=== PATIENT | female | born 2000 | race Caucasian/White ===

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

== ENCOUNTER 2019-12-18 19:05 | Emergency (ER) | payer MEDICAID, OTHER ==
--- NOTE | 2019-12-18 19:46 | ERPHSYRPT ---
- History of Present Illness Time Seen by Provider: 12/18/19 19:25 Patient Subjective Stated Complaint: Patient stated " I tripped over my babies toy". Triage Nursing Assessment: Patient arrived in W/C with family. Patient alert and orientated times 4. Patient answers questions appropriatley. Patient's right outside ankle with small purplish bruising. Slight swelling noted. Patient able to wiggle toes without difficulty. Cap refill < 3 seconds. Patient able to fill sensation when touched. No swelling in leg noted. Physician History: patient is a 19-year-old white female who injured her right ankle and foot tripping over her child's toy. She has not been able to bear weight. Method of Injury: fell, twisted Occurred: just prior to arrival Quality: aching Severity of Pain-Max: moderate Severity of Pain-Current: moderate Lower Extremities Pain: foot: right (tenderness along the lateral aspect of the right foot), ankle: right (tenderness over the lateral aspect of the right ankle some edema and deformity) Allergies/Adverse Reactions: morphine Allergy (Verified 12/18/19 19:12) Hx Tetanus, Diphtheria Vaccination/Date Given: Yes Hx Influenza Vaccination/Date Given: No Hx Pneumococcal Vaccination/Date Given: No Immunizations Up to Date: Yes - Review of Systems Constitutional: No Fever, No Chills Eyes: No Symptoms Ears, Nose, & Throat: No Symptoms Respiratory: No Cough, No Dyspnea Cardiac: No Chest Pain, No Edema, No Syncope Abdominal/Gastrointestinal: No Abdominal Pain, No Nausea, No Vomiting, No Diarrhea Genitourinary Symptoms: No Dysuria Musculoskeletal: Fall, Injury, Joint Pain, No Back Pain, No Neck Pain Skin: No Rash Neurological: No Dizziness, No Focal Weakness, No Sensory Changes Psychological: No Symptoms Endocrine: No Symptoms All Other Systems: Reviewed and Negative - Past Medical History Pertinent Past Medical History: Yes Neurological History: No Pertinent History ENT History: No Pertinent History Cardiac History: No Pertinent History Respiratory History: Asthma Endocrine Medical History: No Pertinent History Musculoskeletal History: Rheumatoid Arthritis GI Medical History: No Pertinent History History: No Pertinent History Psycho-Social History: No Pertinent History Female Reproductive Disorders: No Pertinent History Other Medical History: RA - Past Surgical History Past Surgical History: Yes Neuro Surgical History: No Pertinent History Cardiac: No Pertinent History Respiratory: No Pertinent History Gastrointestinal: No Pertinent History Genitourinary: No Pertinent History Musculoskeletal: No Pertinent History Female Surgical History: No Pertinent History - Social History Smoking Status: Current every day smoker How long have you smoked: 2 years Exposure to second hand smoke: Yes Drug Use: none Patient Lives Alone: No - Female History Hx Last Menstrual Period: 11/28/19 Hx Now: No - Nursing Vital Signs Nursing Vital Signs: Initial Vital Signs Temperature 97.8 F 12/18/19 19:14 Pulse Rate 107 H 12/18/19 19:14 Respiratory Rate 18 12/18/19 19:14 Blood Pressure 127/76 12/18/19 19:14 O2 Sat by Pulse Oximetry 100 12/18/19 19:14 Pain Scale Pain Intensity 8 - Physical Exam General Appearance: moderate distress, alert Eyes, Ears, Nose, Throat Exam: moist mucous membranes Neck Exam: non-tender, supple Cardiovascular/Respiratory Exam: chest non-tender, normal breath sounds, regular rate/rhythm, no respiratory distress Gastrointestinal/Abdominal Exam: non-tender, guarding Back Exam: normal inspection, No vertebral tenderness Ankle Exam: right ankle: bone tenderness, deformity, soft tissue tenderness, swelling, left ankle: non-tender, normal inspection, normal range of motion, no evidence of injury Foot Exam: right foot: bone tenderness, deformity, limited range of motion, pain Neuro/Tendon Exam: normal sensation, normal motor functions Mental Status Exam: alert, oriented x 3, cooperative Skin Exam: normal color, warm, dry SpO2: 100 - Course Nursing assessment & vital signs reviewed: Yes - Radiology Exams Right Ankle X-ray Interpretation: Interpreted by me, Negative, No Fracture Foot X-ray Interpretation: Interpreted by me, Negative, No Fracture Ordered Tests: Active Orders 24 hr Category Date Time Status Cold Application STAT Care 12/18/19 19:21 Active ANKLE (3 VIEWS) Stat Exams 12/18/19 Ordered FOOT (MINIMUM 3 VIEWS) Stat Exams 12/18/19 Ordered - Progress Progress: unchanged - Departure Departure Disposition: Home Clinical Impression: Sprain of right foot, Sprain of right ankle Condition: Stable Critical Care Time: No Referrals: DOCTOR,NO FAMILY [Primary Care Provider] - Instructions: Foot Sprain (DC), Ankle Sprain (DC) Prescriptions: Hydrocodone/APAP 5-325 Tab^^^ [Muse 5-325 Tablet^^^] 1 tab PO Q6HPRN PRN #10 tablet MDD 6 PRN Reason: Pain
[2019-12-18] MEDS ORDERED: NORCO 5/325 MG PO ONE (19:59)
[2019-12-18] MEDS ORDERED: NORCO 5/325 MG ONE (20:01)
[2019-12-18 20:06] VITALS: BP 121/81; PULSE 100; O2SAT 99
--- NOTE | 2019-12-19 08:35 | XRAY ---
Indication: Bruising following tripping injury. Comparison: None 3 nonweightbearing views of the right foot demonstrates mild soft tissue swelling adjacent to the 5th MTP. No other bony, articular, or soft tissue abnormalities.
--- NOTE | 2019-12-19 08:38 | XRAY ---
Indication: Bruising following tripping injury. Comparison: None 3 views of the right ankle demonstrates normal bones, articulation, and soft tissues.
== END 2019-12-18 20:15 | disposition home or self-care (01) ==
LOC: ED 19:05
DX: S93.601A Unspecified sprain of right foot, initial encounter (principal); S93.401A Sprain of unspecified ligament of right ankle, initial encounter; W01.0XXA Fall on same level from slipping, tripping and stumbling without subsequent striking against object, initial encounter
CPT/HCPCS: 73610; 73630; 99284; L4386; A9270-GY

== ENCOUNTER 2020-08-15 00:44 | Observation (INO) | payer MEDICAID, OTHER ==
[2020-08-15 01:08] VITALS: O2SAT 99
[2020-08-15 01:23] LABS: Appearance CLEAR (CLEAR); Bilirubin NEGATIVE (NEGATIVE); Blood NEGATIVE Ery/ul (0-5); Epithelial Cells RARE /HPF (FEW); Glucose NEGATIVE (NEGATIVE); Ketones NEGATIVE (NEGATIVE); Leukocyte Esterase NEGATIVE (NEGATIVE); Nitrite NEGATIVE (NEGATIVE); Protein,Urine Dip NEGATIVE (Negative); Specific Gravity 1.008 (1.005-1.025); Urobilinogen NEGATIVE mg/dL (0-1)
[2020-08-15 01:39] LABS: Amphetamine,Urine NEGATIVE (NEGATIVE); Barbiturate,Urine NEGATIVE (NEGATIVE); Benzodiazepine,Urine NEGATIVE (NEGATIVE); Cocaine,Urine NEGATIVE (NEGATIVE); Methadone,Urine NEGATIVE (NEGATIVE); Opiate,Urine POSITIVE (NEGATIVE); PCP,Urine NEGATIVE (NEGATIVE); THC,Urine NEGATIVE (NEGATIVE)
[2020-08-15] MEDS ORDERED: TYLENOL 325 MG PO PRN (04:00)
[2020-08-15 05:14] VITALS: PULSE 90
--- NOTE | 2020-08-15 08:50 | PCM.SSS ---
History of Present Illness - Chief Complaint Chief Complaint: OB CHECK History of Present Illness: is a 20 year old female pt of Dr. Davenport at 34 weeks who came in to LR last night complaining of contractions and back pain; was not timing them. On the monitor, FHT have been Cat I, and no contractions noted. Her UA was neg. UDS + for opiates. FFN is pending. U/s showed vaginal cervical length to be >3 cm. Preliminary measurements suggest the baby is 30w 2d - will await final report and discuss with Dr. Davenport prior to discharging patient. Previous induced at [address] Graff for PIH. No issues this thus far per pt (prenatals not yet available). - Review of Systems Abdominal/Gastrointestinal: Abdominal Pain Musculoskeletal: Back Pain All Other Systems: Reviewed and Negative Medications & Allergies Home Medications: Home Medication List Hydrocodone Bit/Acetaminophen [[place] 7.5-325 Tablet] 1 mg PO Q6HPRN PRN 08/15/20 [History Confirmed 08/15/20] Ondansetron ODT 4 MG [Zofran Odt 4 mg] 4 mg PO Q6H PRN PRN 08/15/20 [History Confirmed 08/15/20] Vits W-Ca,Fe,FA(<1Mg) [] 1 each PO DAILY 08/15/20 [History Confirmed 08/15/20] Allergies/Adverse Reactions: Allergies Allergy/AdvReac Type Severity Reaction Status Date / Time morphine Allergy Verified 12/18/19 19:12 - Past Medical History Past Medical History: Yes Neurological History: No Pertinent History ENT History: No Pertinent History Cardiac History: No Pertinent History Respiratory History: Asthma Endocrine Medical History: No Pertinent History Musculoskelatal History: Rheumatoid Arthritis GI Medical History: No Pertinent History History: No Pertinent History Pyscho-Social History: No Pertinent History Reproductive Disorders: No Pertinent History Comment: RA - Female History Are you now?: Yes Expected Date of Delivery: 09/26/20 - Past Surgical History Past Surgical History: Yes Neuro Surgical History: No Pertinent History Cardiac History: No Pertinent History Respiratory Surgery: No Pertinent History GI Surgical History: No Pertinent History Genitourinary Surgical Hx: No Pertinent History Musculskeletal Surgical Hx: No Pertinent History Female Surgical History: No Pertinent History - Social History Smoking Status: Current every day smoker How long have you smoked: 3 years Exposure to second hand smoke: Yes Alcohol: None Drug Use: none - Physical Exam Vital Signs: Vital Signs - 24 hr Temp Pulse Resp BP BP Pulse Ox 08/15/20 04:00 97.9 F 90 18 126/78 99 08/15/20 03:00 80 106/58 08/15/20 01:00 97.8 F 89 20 123/76 99 08/15/20 00:44 97.8 F 89 20 123/76 99 General Appearance: no apparent distress, alert Neurologic Exam: oriented x 3, cooperative, other (pat refl 1+ bilat. No clonuse) Eye Exam: eyes nml inspection Ears, Nose, Throat Exam: moist mucous membranes Neck Exam: normal inspection Respiratory Exam: normal breath sounds, lungs clear, No crackles/rales, No rhonchi, No wheezing Cardiovascular Exam: regular rate/rhythm, normal heart sounds, No murmur Gastrointestinal/Abdomen Exam: soft, normal bowel sounds, tenderness (mild, upper abd), other (gravid) Extremity Exam: normal inspection, No pedal edema, No swelling Skin Exam: normal color, warm, dry, No rash Results - Labs Lab/Micro Results: Lab Results-Last 24 Hours 08/15/20 08/15/20 Range/Units 01:00 01:00 Urine Color YELLOW (YELLOW) Urine Appearance CLEAR (CLEAR) Urine pH 7.0 (5-6) Ur Specific [place] 1.008 (1.005-1.025) Urine Protein NEGATIVE (Negative) Urine Ketones NEGATIVE (NEGATIVE) Urine Blood NEGATIVE (0-5) Jones/ul Urine Nitrite NEGATIVE (NEGATIVE) Urine Bilirubin NEGATIVE (NEGATIVE) Urine Urobilinogen NEGATIVE (0-1) mg/dL Ur Leukocyte Esterase NEGATIVE (NEGATIVE) Urine WBC (Auto) NONE (0-5) /HPF Urine RBC (Auto) NONE (0-2) /HPF U Epithel Cells (Auto) RARE (FEW) /HPF Urine Bacteria (Auto) NONE (NEGATIVE) /HPF Urine Culture Reflexed NO (NO) Urine Glucose NEGATIVE (NEGATIVE) mg/dL Urine Opiates Level POSITIVE (NEGATIVE) Ur Methadone NEGATIVE (NEGATIVE) Urine Barbiturates NEGATIVE (NEGATIVE) Ur Phencyclidine (PCP) NEGATIVE (NEGATIVE) Urine Amphetamine NEGATIVE (NEGATIVE) U Benzodiazepine Level NEGATIVE (NEGATIVE) Urine Cocaine NEGATIVE (NEGATIVE) Urine Marijuana (THC) NEGATIVE (NEGATIVE) - Radiology Impressions Radiology Exams & Impressions: Radiology Procedures Category Date Time Status OB >14 WKS 1st GESTATION [US] Urgent Exams 08/15/20 07:00 Taken Assessment/Plan (1) Current Visit: Yes Status: Acute Qualifiers: Weeks of gestation: 34 weeks Qualified Code(s): Z3A.34 - 34 weeks gestation of Assessment & Plan: Labor ruled out. However may have an intrauterine growth restriction - await final ultrasound read and will discuss with Dr. Davenport prior to disposition. Code(s): Z34.90 - ENCNTR FOR SUPRVSN OF NORMAL , UNSP, UNSP TRIMESTER (2) Positive urine drug screen Current Visit: Yes Status: Acute Assessment & Plan: For opiates - will d/w Dr. Davenport. Code(s): R82.5 - ELEVATED URINE LEVELS OF DRUG/MEDS/BIOL SUBST Hospital Summary - Hospital Course Hospital Course: Pt is 20 yo at 34 weeks, pt of Dr. Davenport, admitted during the night with contractions. None picked up on tocometer. FHT Cat I. UA neg. FFN pending. Cervical length > 3 cm. UDS + for opiates. Full u/s read pending, may be IUGR - will d/w Dr. Davenport. - Vitals & Intake/Output Vital Signs: Vital Signs Temperature 97.9 F 08/15/20 04:00 Pulse Rate 90 08/15/20 04:00 Respiratory Rate 18 08/15/20 04:00 Blood Pressure 126/78 08/15/20 04:00 O2 Sat by Pulse Oximetry 99 08/15/20 04:00 Intake & Output: Intake & Output 08/12/20 08/13/20 08/14/20 08/15/20 11:59 11:59 11:59 11:59 Intake Total 850 Balance 850 Weight 78.018 kg - Lab Lab Results-Last 24 Hrs: Lab Results-Last 24 Hours 08/15/20 08/15/20 Range/Units 01:00 01:00 Urine Color YELLOW (YELLOW) Urine Appearance CLEAR (CLEAR) Urine pH 7.0 (5-6) Ur Specific [place] 1.008 (1.005-1.025) Urine Protein NEGATIVE (Negative) Urine Ketones NEGATIVE (NEGATIVE) Urine Blood NEGATIVE (0-5) Jones/ul Urine Nitrite NEGATIVE (NEGATIVE) Urine Bilirubin NEGATIVE (NEGATIVE) Urine Urobilinogen NEGATIVE (0-1) mg/dL Ur Leukocyte Esterase NEGATIVE (NEGATIVE) Urine WBC (Auto) NONE (0-5) /HPF Urine RBC (Auto) NONE (0-2) /HPF U Epithel Cells (Auto) RARE (FEW) /HPF Urine Bacteria (Auto) NONE (NEGATIVE) /HPF Urine Culture Reflexed NO (NO) Urine Glucose NEGATIVE (NEGATIVE) mg/dL Urine Opiates Level POSITIVE (NEGATIVE) Ur Methadone NEGATIVE (NEGATIVE) Urine Barbiturates NEGATIVE (NEGATIVE) Ur Phencyclidine (PCP) NEGATIVE (NEGATIVE) Urine Amphetamine NEGATIVE (NEGATIVE) U Benzodiazepine Level NEGATIVE (NEGATIVE) Urine Cocaine NEGATIVE (NEGATIVE) Urine Marijuana (THC) NEGATIVE (NEGATIVE) - Radiology Exams Ordered Rad Exams-Entire Visit: Radiology Procedures Category Date Time Status OB >14 WKS 1st GESTATION [US] Urgent Exams 08/15/20 07:00 Taken - Discharge Disposition: Home, Self-Care Condition: Stable Prescriptions: No Action Ondansetron ODT 4 MG [Zofran Odt 4 mg] 4 mg PO Q6H PRN PRN PRN Reason: Nausea Vits W-Ca,Fe,FA(<1Mg) [] 1 each PO DAILY Hydrocodone Bit/Acetaminophen [[place] 7.5-325 Tablet] 1 mg PO Q6HPRN PRN PRN Reason: Pain Follow up with: CESAR DAVENPORT [Primary Care Provider] - 1 Week
[2020-08-15 09:08] VITALS: BP 130/73
--- NOTE | 2020-08-15 09:28 | XRAY ---
Indication: well-being following abdomen injury. Two-dimensional OB ultrasound performed. Comparison: None There is a single viable intrauterine currently in breech presentation. Normal four-chamber heart with heart rate 138 BPM. Normal three-vessel cord and cord insertion. Visualized spine, stomach, kidneys, and bladder are unremarkable. Posterior fundal placenta without abruption/previa. Cervix is closed and measures 3.8 cm in length. BPD measures 7.67 cm corresponding to 30 weeks 5 days. HC measures 27.61 cm corresponding to 30 weeks 1 day. AC measures 26.56 cm corresponding to 30 weeks 5 days. FL measures 5.67 cm corresponding to 29 weeks 5 days. Estimated weight 3 lbs. 7 oz., +/-8 ounces. Less than 3 percentile. TANA is 16.2 cm. Impression: Single viable intrauterine with mean gestational age 30 weeks 2 days. No acute findings. Ultrasound expected date of confinement is October 22, 2020. Patient however reports her expected date of confinement is September 26, 2020. Based on this, fetus is considered small for gestational age.
== END 2020-08-15 10:35 | disposition home or self-care (01) ==
LOC: UNDOADMOB 00:44 → OB 00:44 → UNDODISOB 10:35
PROVIDERS: ADMIT Family Medicine; ATTEND Family Medicine
DX: Z34.83 Encounter for supervision of other normal pregnancy, third trimester (principal); Z3A.34 34 weeks gestation of pregnancy; R82.5 Elevated urine levels of drugs, medicaments and biological substances
CPT/HCPCS: 76805; 80307; 81001; 82731; G0378; A9270-GY

== ENCOUNTER 2020-09-14 13:13 | Inpatient (IN) | payer OTHER ==
[2020-09-14] MEDS ORDERED: TUCKS TP PRN (13:47)
[2020-09-14] MEDS ORDERED: Dermoplast Spray TP PRN (13:47)
[2020-09-14] MEDS: MOTRIN 400 MG PO PRN (14:18)
[2020-09-14 14:34] LABS: Hematocrit 34.2 % (35-47); Hemoglobin 11.7 gm/dl (12.0-16.0); Mean Cell Volume 91.9 fl (78-100); Mean Corpuscular Hemoglobin 31.5 pg (26-32); Mean Corpuscular Hgb Concent. 34.2 g/dl (32-36); Platelet Count 319 K/mm3 (150-450); Red Blood Count 3.72 M/mm3 (4.1-5.4); Red Cell Distribution Width 13.3 % (11.5-14.0)
[2020-09-14 14:44] LABS: White Blood Count 27.6 K/mm3 (4.0-10.5)
[2020-09-14 14:57] LABS: ABO TYPING A; Antibody Screen NEGATIVE (NEGATIVE); RH TYPING POSITIVE
[2020-09-14 15:35] LABS: ANISOCYTOSIS 1+; BAND 6 % (0.0-2.0); Lymphocytes 6 % (24-44); Monocyte 2 % (0.0-12.0); Neutrophils 86 % (36.0-66.0); Platelet Estimate NORMAL (NORMAL); Total Cells Counted 100; Toxic Granulation 2+
[2020-09-14 16:42] LABS: Barbiturate,Urine NEGATIVE (NEGATIVE); Benzodiazepine,Urine NEGATIVE (NEGATIVE); Cocaine,Urine NEGATIVE (NEGATIVE); Methadone,Urine NEGATIVE (NEGATIVE); Opiate,Urine NEGATIVE (NEGATIVE); PCP,Urine NEGATIVE (NEGATIVE); THC,Urine NEGATIVE (NEGATIVE)
[2020-09-14 16:56] LABS: Amphetamine,Urine POSITIVE (NEGATIVE)
[2020-09-14] MEDS: TYLENOL EXTRA STRENGTH 500 MG PO PRN (20:47)
[2020-09-14] MEDS: Colace 100 MG PO SCH (20:48)
[2020-09-14 22:26] VITALS: O2SAT 99
[2020-09-15] MEDS: MOTRIN 400 MG PO PRN ×2 (01:11→08:30)
[2020-09-15] MEDS ORDERED: Anucort-HC SUPPOSITORY PR PRN (01:28)
[2020-09-15] MEDS ORDERED: CORTISONE 1% CREAM TP PRN (01:28)
[2020-09-15] MEDS: TYLENOL EXTRA STRENGTH 500 MG PO PRN ×2 (04:38→11:27)
[2020-09-15] MEDS: Colace 100 MG PO SCH ×4 (04:46→23:26)
[2020-09-15 06:05] LABS: Hematocrit 30.2 % (35-47); Mean Cell Volume 93.8 fl (78-100); Mean Corpuscular Hemoglobin 31.1 pg (26-32); Mean Corpuscular Hgb Concent. 33.1 g/dl (32-36); Platelet Count 311 K/mm3 (150-450); Red Blood Count 3.22 M/mm3 (4.1-5.4); Red Cell Distribution Width 13.2 % (11.5-14.0); White Blood Count 21.6 K/mm3 (4.0-10.5)
[2020-09-15 07:35] LABS: ANISOCYTOSIS 1+; BAND 3 % (0.0-2.0); Lymphocytes 15 % (24-44); Monocyte 6 % (0.0-12.0); Neutrophils 76 % (36.0-66.0); Platelet Estimate NORMAL (NORMAL); Total Cells Counted 100; Toxic Granulation 2+
[2020-09-15] MEDS: FERREX 150 PO SCH (11:27)
[2020-09-16] MEDS: MOTRIN 400 MG PO PRN ×2 (00:58→10:22)
--- NOTE | 2020-09-16 05:52 | PCM.NOTE ---
Date and Time: 09/16/20 0551 Subjective Assessment: ppd 2 pt resting in bed and doing well vss afebrile abd; soft uterus; firm lochia; mild a/p sp ppd 2 doing very well dc home and fu with primary care provider in 6 wks. OBJECTIVE DATA Vital Signs: Vital Signs - 24 hr Temp Pulse Resp BP 09/16/20 02:00 98.2 F 92 H 20 129/77 09/15/20 20:30 98.2 F 84 18 136/80 09/15/20 08:00 98.2 F 87 20 126/78 Pain Assessment - Last Documented Pain Intensity [Anterior] 8 Pain Intensity 0 Pain Scale Used 0-10 Pain Scale Intake and Output: Intake & Output 09/13/20 09/14/20 09/15/20 09/16/20 11:59 11:59 11:59 11:59 Weight 82.1 kg Lab Results: Lab Results-Last 24 Hours 09/15/20 Range/Units 05:00 WBC 21.6 H (4.0-10.5) K/mm3 RBC 3.22 L (4.1-5.4) M/mm3 Hgb 10.0 L (12.0-16.0) gm/dl Hct 30.2 L (35-47) % MCV 93.8 (78-100) fl MCH 31.1 (26-32) pg MCHC 33.1 (32-36) g/dl RDW 13.2 (11.5-14.0) % Plt Count 311 (150-450) K/mm3 MPV 9.0 (7.5-11.0) fl Segmented Neutrophils 76 H (36.0-66.0) % Band Neutrophils 3 H (0.0-2.0) % Lymphocytes (Manual) 15 L (24-44) % Monocytes (Manual) 6 (0.0-12.0) % Toxic Granulation 2+ Platelet Estimate NORMAL (NORMAL) RBC Morphology ABNORMAL Anisocytosis 1+
--- NOTE | 2020-09-16 05:55 | PCM.DS ---
Discharge Summary Date of Admission: 09/14/20 13:13 Date of Discharge: 09/16/20 Admitting Physician: PAOLO LAKHANI DO Primary Care Provider: CESAR DAVENPORT Allergies Allergies morphine Allergy (Verified 12/18/19 19:12) Hospital Summary - Hospital Course Hospital Course: pt admitted on sep 14 in labor and completely dilated presented to er and subsequently delivered live baby boy without complication. pt noted having positive amphetamine in urine toxicology. pt during period did well and now stable for discharge. pt was advised to fu with her obgyn for care in 6 wks and was noted having stable h/h. all questions answered to her satisfaction. - Vitals & Intake/Output Vital Signs: Vital Signs Temperature 98.2 F 09/16/20 02:00 Pulse Rate 92 H 09/16/20 02:00 Respiratory Rate 09/16/20 02:00 Blood Pressure 129/77 09/16/20 02:00 O2 Sat by Pulse Oximetry 99 09/15/20 01:00 Intake & Output: Intake & Output 09/13/20 09/14/20 09/15/20 09/16/20 11:59 11:59 11:59 11:59 Weight 82.1 kg - Lab Result Diagrams: 09/15/20 05:00 Lab Results-Last 24 Hrs: Lab Results-Last 24 Hours 09/15/20 Range/Units 05:00 WBC 21.6 H (4.0-10.5) K/mm3 RBC 3.22 L (4.1-5.4) M/mm3 Hgb 10.0 L (12.0-16.0) gm/dl Hct 30.2 L (35-47) % MCV 93.8 (78-100) fl MCH 31.1 (26-32) pg MCHC 33.1 (32-36) g/dl RDW 13.2 (11.5-14.0) % Plt Count 311 (150-450) K/mm3 MPV 9.0 (7.5-11.0) fl Segmented Neutrophils 76 H (36.0-66.0) % Band Neutrophils 3 H (0.0-2.0) % Lymphocytes (Manual) 15 L (24-44) % Monocytes (Manual) 6 (0.0-12.0) % Toxic Granulation 2+ Platelet Estimate NORMAL (NORMAL) RBC Morphology ABNORMAL Anisocytosis 1+ - Procedures and Test Procedures and Tests throughout Hospitalization: Therapy Orders & Screens 09/14/20 13:50 Standby STAT Comment: - Discharge Disposition: Home, Self-Care Condition: Stable Prescriptions: No Action Ondansetron ODT 4 MG [Zofran Odt 4 mg] 4 mg PO Q6H PRN PRN PRN Reason: Nausea Vits W-Ca,Fe,FA(<1Mg) [] 1 each PO DAILY Hydrocodone Bit/Acetaminophen [[place] 7.5-325 Tablet] 1 mg PO Q6HPRN PRN PRN Reason: Pain Ferrous Sulfate 325 mg PO DAILY Follow up with: CESAR DAVENPORT [Primary Care Provider] - Call for Appointment (should fu with her obgyn in 6 wks)
[2020-09-16] MEDS ORDERED: Adacel Vial IM ONE (08:00)
[2020-09-16] MEDS: Colace 100 MG PO SCH (10:22)
[2020-09-16] MEDS: FERREX 150 PO SCH (10:24)
[2020-09-16 16:02] VITALS: BP 131/72; PULSE 94
[2020-09-16] MEDS: TYLENOL EXTRA STRENGTH 500 MG PO PRN (17:55)
== END 2020-09-16 18:05 | disposition home or self-care (01) | DRG 807 ==
LOC: OB 13:13
PROVIDERS: ADMIT Obstetrics & Gynecology; ATTEND Obstetrics & Gynecology
PROC: 10E0XZZ Delivery of Products of Conception, External Approach (ICD-10-PCS; principal; 2020-09-14)
DX: O80 Encounter for full-term uncomplicated delivery (principal); Z37.0 Single live birth; Z3A.37 37 weeks gestation of pregnancy
CPT/HCPCS: 36415; 80307; 85025; 86592; 86701; 86702; 86765; 86850; 86900; 86901; 87340; 87389; 87535; 90715; 94799; G0378; A9270-GY

== ENCOUNTER 2021-06-28 22:59 | Emergency (ER) | payer OTHER ==
--- NOTE | 2021-06-28 23:11 | ERPHSYRPT ---
- History of Present Illness Time Seen by Provider: 06/28/21 23:11 Historian: patient Exam Limitations: no limitations Physician History: This is a 21-year-old white female who has had no prior abdominal surgeries and presents with 1 week history of intermittent right upper quadrant abdominal pain. In the last 2 days the pain has worsened and has been constant. She has no other associated symptoms. She denies fever. She denies cough. She denies chest pain. She states that the pain does worsen at times when she eats food. She denies nausea vomiting or diarrhea. The pain does not radiate. Timing/Duration: week(s) (1), intermittent, worse Activities at Onset: none Quality: aching Abdominal Pain Onset Location: RUQ Pain Radiation: no radiation Severity of Pain-Max: moderate Severity of Pain-Current: mild Modifying Factors: Improves With: eating (Sometimes worsens.) Associated Symptoms: denies symptoms Previous symptoms: same symptoms as today Allergies/Adverse Reactions: morphine Allergy (Verified 06/28/21 23:30) Home Medications: desogestreL-ethinyl estradioL [[place] 28 Tablet] 1 tab PO DAILY 06/28/21 [History] Hx Tetanus, Diphtheria Vaccination/Date Given: Yes Hx Influenza Vaccination/Date Given: No Hx Pneumococcal Vaccination/Date Given: No Travel Risk - International Travel Have you traveled outside of the country in past 3 weeks: No - Coronavirus Screening Are you exhibiting any of the following symptoms?: No Close contact with a COVID-19 positive Pt in past 14-21 Days: No - Review of Systems Constitutional: No Symptoms Eyes: No Symptoms Ears, Nose, & Throat: No Symptoms Respiratory: No Symptoms Cardiac: No Symptoms Abdominal/Gastrointestinal: Abdominal Pain, No Nausea, No Vomiting, No Diarrhea Genitourinary Symptoms: No Symptoms Musculoskeletal: No Symptoms Skin: No Symptoms Neurological: No Symptoms Psychological: No Symptoms Endocrine: No Symptoms Hematologic/Lymphatic: No Symptoms Immunological/Allergic: No Symptoms All Other Systems: Reviewed and Negative - Past Medical History Pertinent Past Medical History: Yes Neurological History: No Pertinent History ENT History: No Pertinent History Cardiac History: No Pertinent History Respiratory History: Asthma Endocrine Medical History: No Pertinent History Musculoskeletal History: Rheumatoid Arthritis GI Medical History: No Pertinent History History: No Pertinent History Psycho-Social History: No Pertinent History Female Reproductive Disorders: No Pertinent History Other Medical History: RA - Past Surgical History Past Surgical History: Yes Neuro Surgical History: No Pertinent History Cardiac: No Pertinent History Respiratory: No Pertinent History Gastrointestinal: No Pertinent History Genitourinary: No Pertinent History Musculoskeletal: No Pertinent History Female Surgical History: No Pertinent History - Social History Smoking Status: Current every day smoker How long have you smoked: 3 years Exposure to second hand smoke: Yes Drug Use: methamphetamines Patient Lives Alone: No - Nursing Vital Signs Nursing Vital Signs: Initial Vital Signs Temperature 97.8 F 06/28/21 23:22 Pulse Rate 89 06/28/21 23:22 Respiratory Rate 17 06/28/21 23:22 Blood Pressure 159/91 06/28/21 23:22 O2 Sat by Pulse Oximetry 100 06/28/21 23:22 Pain Scale Pain Intensity 8 - Physical Exam General Appearance: no apparent distress, alert, anxiety Eye Exam: PERRL/EOMI, eyes nml inspection Ears, Nose, Throat Exam: normal ENT inspection, moist mucous membranes Neck Exam: normal inspection, non-tender, supple, full range of motion Respiratory Exam: normal breath sounds, lungs clear, airway intact, No chest tenderness, No respiratory distress Cardiovascular Exam: regular rate/rhythm, normal heart sounds, normal peripheral pulses Gastrointestinal/Abdomen Exam: soft, normal bowel sounds, tenderness (Right upper quadrant), guarding (Mild right upper quadrant to palpation), No rebound Pelvic Exam: not done Rectal Exam: not done Back Exam: normal inspection, normal range of motion, No CVA tenderness, No v ertebral tenderness Extremity Exam: normal inspection, normal range of motion, pelvis stable Neurologic Exam: alert, oriented x 3, cooperative, fur mixer operator II-XII nml as tested, normal mood/affect, nml cerebellar function, nml station & gait, sensation nml Skin Exam: normal color, warm, dry Lymphatic Exam: No adenopathy SpO2 Interpretation: normal O2 Delivery: Room Air - Course Nursing assessment & vital signs reviewed: Yes Ordered Tests: Active Orders 24 hr Category Date Time Status IV Insertion STAT Care 06/28/21 23:40 Active ABDOMEN AND PELVIS W/0 CONTRAS [CT] Stat Exams 06/28/21 23:40 Taken AMYLASE Stat Lab 06/28/21 23:40 Completed CBC W DIFF Stat Lab 06/28/21 23:40 Completed CMP Stat Lab 06/28/21 23:40 Completed HCG,QUALITATIVE URINE Stat Lab 06/28/21 23:44 Completed LIPASE Stat Lab 06/28/21 23:40 Completed Lactic Acid Stat Lab 06/28/21 23:40 Completed UA W/RFX UR CULTURE Stat Lab 06/28/21 23:44 Completed Medication Summary Generic Name Dose Route Start Last Admin Trade Name Allyson PRN Reason Stop Dose Admin Ketorolac Tromethamine 30 mg 06/29/21 01:57 Toradol 30 Mg Injection IV 06/29/21 01:58 STAT ONE Discontinued Medications Generic Name Dose Route Start Last Admin Trade Name Allyson PRN Reason Stop Dose Admin Hydrocodone Bitart/Acetaminophen 1 tab 06/29/21 00:31 06/29/21 01:00 [place] 5/325 Mg PO 06/29/21 00:32 1 tab STAT ONE Administration Hydrocodone Bitart/Acetaminophen Confirm 06/29/21 00:58 [place] 5/325 Mg Administered 06/29/21 00:59 Dose 1 tab .ROUTE .STK-MED ONE Lab/Rad Data: Laboratory Result Diagrams 06/28/21 23:40 06/28/21 23:40 Laboratory Results 06/29/21 06/28/21 06/28/21 Range/Units 00:50 23:44 23:44 WBC (4.0-10.5) K/mm3 RBC (4.1-5.4) M/mm3 Hgb (12.0-16.0) gm/dl Hct (35-47) % MCV (78-100) fl MCH (26-32) pg MCHC (32-36) g/dl RDW (11.5-14.0) % Plt Count (150-450) K/mm3 MPV (7.5-11.0) fl Gran % (36.0-66.0) % Eos # (Auto) (0-0.5) Absolute Lymphs (auto) (1.0-4.6) Absolute Monos (auto) (0.0-1.3) Lymphocytes % (24.0-44.0) % Monocytes % (0.0-12.0) % Eosinophils % (0.00-5.0) % Basophils % (0.0-0.4) % Absolute Granulocytes (1.4-6.9) Basophils # (0-0.4) Sodium (137-145) mmol/L Potassium (3.5-5.1) mmol/L Chloride (98-107) mmol/L Carbon Dioxide (22-30) mmol/L Anion Gap (5-15) MEQ/L BUN (7-17) mg/dL Creatinine (0.52-1.04) mg/dL Estimated GFR ML/MIN Glucose (74-106) mg/dL Lactic Acid 1.0 (0.4-2.0) Calcium (8.4-10.2) mg/dL Total Bilirubin (0.2-1.3) mg/dL AST (14-36) U/L ALT (0-35) U/L Alkaline Phosphatase (38-126) U/L Serum Total Protein (6.3-8.2) g/dL Albumin (3.5-5.0) g/dL Amylase (30-110) U/L Lipase (23-300) U/L Urine Color YELLOW (YELLOW) Urine Appearance CLEAR (CLEAR) Urine pH 5.0 (5-6) Ur Specific [place] 1.027 (1.005-1.025) Urine Protein NEGATIVE (Negative) Urine Ketones NEGATIVE (NEGATIVE) Urine Blood LARGE (0-5) Jones/ul Urine Nitrite NEGATIVE (NEGATIVE) Urine Bilirubin NEGATIVE (NEGATIVE) Urine Urobilinogen 2 (0-1) mg/dL Ur Leukocyte Esterase NEGATIVE (NEGATIVE) Urine WBC (Auto) NONE (0-5) /HPF Urine RBC (Auto) NONE (0-2) /HPF U Epithel Cells (Auto) NONE (FEW) /HPF Urine Bacteria (Auto) NONE (NEGATIVE) /HPF Urine Mucus (Auto) SLIGHT (NEGATIVE) /HPF Urine Culture Reflexed NO (NO) Urine Glucose NEGATIVE (NEGATIVE) mg/dL Urine HCG, Qual NEGATIVE (Negative) 06/28/21 06/28/21 Range/Units 23:40 23:40 WBC 10.2 (4.0-10.5) K/mm3 RBC 4.11 (4.1-5.4) M/mm3 Hgb 11.8 L (12.0-16.0) gm/dl Hct 37.2 (35-47) % MCV 90.5 (78-100) fl MCH 28.7 (26-32) pg MCHC 31.7 L (32-36) g/dl RDW 14.4 H (11.5-14.0) % Plt Count 398 (150-450) K/mm3 MPV 8.8 (7.5-11.0) fl Gran % 56.5 (36.0-66.0) % Eos # (Auto) 0.08 (0-0.5) Absolute Lymphs (auto) 3.48 (1.0-4.6) Absolute Monos (auto) 0.87 (0.0-1.3) Lymphocytes % 34.0 (24.0-44.0) % Monocytes % 8.5 (0.0-12.0) % Eosinophils % 0.8 (0.00-5.0) % Basophils % 0.2 (0.0-0.4) % Absolute Granulocytes 5.78 (1.4-6.9) Basophils # 0.02 (0-0.4) Sodium 140 (137-145) mmol/L Potassium 3.4 L (3.5-5.1) mmol/L Chloride 106 (98-107) mmol/L Carbon Dioxide 24 (22-30) mmol/L Anion Gap 13.6 (5-15) MEQ/L BUN 8 (7-17) mg/dL Creatinine 0.74 (0.52-1.04) mg/dL Estimated GFR > 60.0 ML/MIN Glucose 70 L (74-106) mg/dL Lactic Acid (0.4-2.0) Calcium 8.6 (8.4-10.2) mg/dL Total Bilirubin 0.30 (0.2-1.3) mg/dL AST 16 (14-36) U/L ALT 10 (0-35) U/L Alkaline Phosphatase 48 (38-126) U/L Serum Total Protein 7.1 (6.3-8.2) g/dL Albumin 4.1 (3.5-5.0) g/dL Amylase 68 (30-110) U/L Lipase 234 (23-300) U/L Urine Color (YELLOW) Urine Appearance (CLEAR) Urine pH (5-6) Ur Specific [place] (1.005-1.025) Urine Protein (Negative) Urine Ketones (NEGATIVE) Urine Blood (0-5) Jones/ul Urine Nitrite (NEGATIVE) Urine Bilirubin (NEGATIVE) Urine Urobilinogen (0-1) mg/dL Ur Leukocyte Esterase (NEGATIVE) Urine WBC (Auto) (0-5) /HPF Urine RBC (Auto) (0-2) /HPF U Epithel Cells (Auto) (FEW) /HPF Urine Bacteria (Auto) (NEGATIVE) /HPF Urine Mucus (Auto) (NEGATIVE) /HPF Urine Culture Reflexed (NO) Urine Glucose (NEGATIVE) mg/dL Urine HCG, Qual (Negative) - Progress Progress: improved, pain not gone completely Progress Note: 06/29/21 01:58 CAT scan of the abdomen pelvis without contrast shows mild right hydronephrosis. There is an umbilical hernia that contains fat. It is small. The gallbladder is contracted. Correlate with possibility of recent passage of right ureteral stone. Appendix is visualized and there is no evidence of acute appendicitis 06/29/21 01:59 Counseled pt/family regarding: lab results, diagnosis, need for follow-up, rad results - Departure Departure Disposition: Home Clinical Impression: Umbilical hernia, Hematuria Condition: Stable Critical Care Time: No Referrals: CESAR DAVENPORT [NON-STAFF PHY W/O PRIVILEGES] - Additional Instructions: Drink plenty of fluids. Take your pain medicine this morning as prescribed. Af ter that medicine is completed, may use Tylenol and ibuprofen for pain control. Follow-up with your primary care doctor for further management.
[2021-06-28 23:58] LABS: Appearance CLEAR (CLEAR); Bilirubin NEGATIVE (NEGATIVE); Blood LARGE Ery/ul (0-5); Glucose NEGATIVE (NEGATIVE); Ketones NEGATIVE (NEGATIVE); Leukocyte Esterase NEGATIVE (NEGATIVE); Mucus SLIGHT /HPF (NEGATIVE); Nitrite NEGATIVE (NEGATIVE); Protein,Urine Dip NEGATIVE (Negative); Specific Gravity 1.027 (1.005-1.025); Urobilinogen 2 mg/dL (0-1)
[2021-06-29] MEDS ORDERED: NORCO 5/325 MG PO ONE ×2 (00:31→01:57)
[2021-06-29 00:33] LABS: Absolute Neutrophil Ct (ANC) 5.78 (1.4-6.9); BASOPHIL % 0.2 % (0.0-0.4); Basophil (Absolute #) 0.02 (0-0.4); Eosinophil % 0.8 % (0.00-5.0); Eosinophil (Absolute #) 0.08 (0-0.5); Hematocrit 37.2 % (35-47); Hemoglobin 11.8 gm/dl (12.0-16.0); Lymphocyte (Absolute #) 3.48 (1.0-4.6); Mean Cell Volume 90.5 fl (78-100); Mean Corpuscular Hemoglobin 28.7 pg (26-32); Mean Corpuscular Hgb Concent. 31.7 g/dl (32-36); Mean Platelet Volume 8.8 fl (7.5-11.0); Monocyte (Absolute #) 0.87 (0.0-1.3); Monocytes % 8.5 % (0.0-12.0); Neutrophil % 56.5 % (36.0-66.0); Platelet Count 398 K/mm3 (150-450); Red Blood Count 4.11 M/mm3 (4.1-5.4); Red Cell Distribution Width 14.4 % (11.5-14.0); White Blood Count 10.2 K/mm3 (4.0-10.5)
[2021-06-29 00:47] LABS: ALBUMIN 4.1 g/dL (3.5-5.0); ALKALINE PHOSPHATASE 48 U/L (38-126); AMYLASE 68 U/L (30-110); ANION GAP 13.6 MEQ/L (5-15); BLOOD UREA NITROGEN 8 mg/dL (7-17); CHLORIDE 106 mmol/L (98-107); Calcium 8.6 mg/dL (8.4-10.2); Carbon Dioxide 24 mmol/L (22-30); Creatinine 1 0.74 mg/dL (0.52-1.04); EST GLOMERULAR FILTRATION RATE > 60.0 ML/MIN; Glucose 70 mg/dL (74-106); LIPASE 234 U/L (23-300); Potassium 3.4 mmol/L (3.5-5.1); SGOT/AST 16 U/L (14-36); SGPT/ALT 10 U/L (0-35); SODIUM 140 mmol/L (137-145); Total Protein 7.1 g/dL (6.3-8.2)
[2021-06-29] MEDS ORDERED: NORCO 5/325 MG ONE ×2 (00:58→02:11)
[2021-06-29] MEDS ORDERED: TORAdol 30 mg Injection IV ONE (01:57)
[2021-06-29] MEDS ORDERED: TORAdol 30 mg Injection ONE (02:11)
[2021-06-29 02:18] VITALS: BP 125/74; PULSE 71; O2SAT 100
--- NOTE | 2021-06-29 08:55 | XRAY ---
Indication: Right upper quadrant pain. Multiple contiguous axial images obtained through the abdomen and pelvis without contrast. Comparison: January 02, 2018. Lung bases remain clear. Heart not enlarged. Stomach is mildly distended with food/fluid. Noncontrasted stomach and bowel loops nonobstructed. Continued normal appendix. There is again mild diffuse scattered colonic fecal debris greatest in the right hemicolon. 2 cm right ovary cyst. No free fluid/air. Right kidney minimally hydronephrotic and right ureter is asymmetrically prominent up to 6 mm. No calculus in either system. Remaining liver, gallbladder, pancreas, spleen, adrenal glands, kidneys, ureters, bladder, uterus, and aorta are unremarkable for noncontrast exam. Osseous structures intact. Impression: 1. New minimal right-sided hydronephrosis and hydroureter. Rule out recent passage of calculus. 2. Again diffuse fecal stasis. Comment: Preliminary interpretation made by C. No critical discrepancy.
== END 2021-06-29 02:28 | disposition home or self-care (01) ==
LOC: ED 22:59
DX: K42.9 Umbilical hernia without obstruction or gangrene (principal)
CPT/HCPCS: 36000; 36415; 74176; 80053; 81001; 82150; 83605; 83690; 84703; 85025; 96374; 99284; J1885; A9270-GY

== ENCOUNTER 2021-11-06 21:30 | Emergency (ER) | payer OTHER ==
--- NOTE | 2021-11-06 21:33 | ERPHSYRPT ---
- History of Present Illness Time Seen by Provider: 11/06/21 21:33 Source: patient Exam Limitations: no limitations Physician History: This is a 21-year-old white female who approximately 1 hour ago fell down a few steps outside when attempting to feed her dog. She rolled her left ankle Method of Injury: fell Occurred: just prior to arrival Quality: constant, aching, throbbing Severity of Pain-Max: moderate Severity of Pain-Current: moderate Lower Extremities Pain: ankle: left Modifying Factors: Improves With: movement Associated Symptoms: other (Hurts to bear weight but can do so) Allergies/Adverse Reactions: morphine Allergy (Verified 11/06/21 21:39) Home Medications: desogestreL-ethinyl estradioL [Enskyce 28 Tablet] 1 tab PO DAILY 06/28/21 [History] Hx Tetanus, Diphtheria Vaccination/Date Given: Yes Hx Influenza Vaccination/Date Given: No Hx Pneumococcal Vaccination/Date Given: No Travel Risk - International Travel Have you traveled outside of the country in past 3 weeks: No - Coronavirus Screening Are you exhibiting any of the following symptoms?: No Close contact with a COVID-19 positive Pt in past 14-21 Days: No - Vaccine Status Have you recieved a Covid-19 vaccination: No - Review of Systems Constitutional: No Symptoms Eyes: No Symptoms Ears, Nose, & Throat: No Symptoms Respiratory: No Symptoms Cardiac: No Symptoms Abdominal/Gastrointestinal: No Symptoms Genitourinary Symptoms: No Symptoms Musculoskeletal: Fall, Injury (Left ankle), Joint Swelling (Lateral aspect left ankle) Skin: No Symptoms Neurological: No Symptoms Psychological: No Symptoms Endocrine: No Symptoms Hematologic/Lymphatic: No Symptoms Immunological/Allergic: No Symptoms All Other Systems: Reviewed and Negative - Past Medical History Pertinent Past Medical History: Yes Neurological History: No Pertinent History ENT History: No Pertinent History Cardiac History: No Pertinent History Respiratory History: Asthma Endocrine Medical History: No Pertinent History Musculoskeletal History: Rheumatoid Arthritis GI Medical History: No Pertinent History History: No Pertinent History Psycho-Social History: No Pertinent History Female Reproductive Disorders: No Pertinent History Other Medical History: RA - Past Surgical History Past Surgical History: Yes Neuro Surgical History: No Pertinent History Cardiac: No Pertinent History Respiratory: No Pertinent History Gastrointestinal: No Pertinent History Genitourinary: No Pertinent History Musculoskeletal: No Pertinent History Female Surgical History: No Pertinent History - Social History Smoking Status: Current every day smoker How long have you smoked: 3 years Exposure to second hand smoke: Yes Drug Use: methamphetamines Patient Lives Alone: No - Nursing Vital Signs Nursing Vital Signs: Initial Vital Signs Temperature 98.1 F 11/06/21 21:31 Pulse Rate 103 H 11/06/21 21:31 Respiratory Rate 20 11/06/21 21:31 Blood Pressure 150/84 11/06/21 21:31 O2 Sat by Pulse Oximetry 100 11/06/21 21:31 Pain Scale Pain Intensity 9 - Physical Exam General Appearance: no apparent distress, alert, anxiety Eyes, Ears, Nose, Throat Exam: normal ENT inspection, moist mucous membranes Neck Exam: normal inspection, non-tender, supple, full range of motion Cardiovascular/Respiratory Exam: chest non-tender, no respiratory distress Gastrointestinal/Abdominal Exam: non-tender Back Exam: normal inspection, normal range of motion, No CVA tenderness, No vertebral tenderness Hips Exam: bilateral: non-tender, normal inspection, normal range of motion, no evidence of injury Legs Exam: bilateral leg: non-tender, normal inspection, normal range of motion, no evidence of injury Knees Exam: bilateral knee: non-tender, normal inspection, normal range of motion, no evidence of injury Ankle Exam: right ankle: non-tender, normal inspection, normal range of motion, no evidence of injury, left ankle: bone tenderness, limited range of motion, soft tissue tenderness, swelling (Lateral malleoli region) Foot Exam: bilateral foot: non-tender, normal inspection, normal range of motion, no evidence of injury Neuro/Tendon Exam: normal sensation, normal motor functions, normal tendon functions, responds to pain, no evidence tendon injury Mental Status Exam: alert, oriented x 3, cooperative Skin Exam: normal color, warm, dry SpO2 Interpretation: normal O2 Delivery: Room Air Ordered Tests: Active Orders 24 hr Category Date Time Status ANKLE (3 VIEWS) Stat Exams 11/06/21 21:50 Ordered - Progress Progress: improved, pain not gone completely Progress Note: 11/06/21 22:36 X-ray left ankle shows no acute fracture or dislocation Counseled pt/family regarding: diagnosis, need for follow-up, rad results - Departure Departure Disposition: Home Clinical Impression: Moderate left ankle sprain Condition: Stable Critical Care Time: No Referrals: DOCTOR,NO FAMILY [NON-STAFF PHY W/O PRIVILEGES] - FOR[facility], [facility]–1983-Ortho M-[id number] (Follow-up at the [facility] orthopedic clinic if pain and swelling persist in your left ankle.) Additional Instructions: Ice pack to left ankle 3 times a day for the next 48 hours. Add ibuprofen 600 mg orally with food 3 times a day for the next 5 days. Wear Malcolm wrap to minimize swelling and for comfort. Follow-up with [facility] orthopedic clinic for persistent swelling and tenderness symptoms. Keep the left lower extremity elevated above the level of your heart when not ambulating.
[2021-11-06 21:39] VITALS: O2SAT 100
[2021-11-06] MEDS ORDERED: MOTRIN 600 MG PO ONE (22:37)
[2021-11-06] MEDS ORDERED: NORCO 5/325 MG PO ONE (22:37)
[2021-11-06] MEDS ORDERED: MOTRIN 600 MG ONE (22:41)
[2021-11-06] MEDS ORDERED: NORCO 5/325 MG ONE (22:42)
[2021-11-06 22:58] VITALS: BP 132/76; PULSE 105
--- NOTE | 2021-11-07 07:58 | XRAY ---
Indication: Pain and swelling following fall. Comparison: None 3 view left ankle demonstrates mild anterior lateral soft tissue swelling. No other bony, articular, or soft tissue abnormalities.
== END 2021-11-06 23:00 | disposition home or self-care (01) ==
LOC: ED 21:30
DX: S93.402A Sprain of unspecified ligament of left ankle, initial encounter (principal); W10.8XXA Fall (on) (from) other stairs and steps, initial encounter; Y93.K9 Activity, other involving animal care; Z72.0 Tobacco use
CPT/HCPCS: 73610; 99284; A9270-GY

== ENCOUNTER 2022-02-21 15:00 | Emergency (ER) | payer OTHER ==
--- NOTE | 2022-02-21 15:22 | ERPHSYRPT ---
- History of Present Illness Source: patient Exam Limitations: no limitations Patient Subjective Stated Complaint: here for sorethroat, no fever , aslo co green nasal drainage Triage Nursing Assessment: pt alert, resp easy, face mask in place, has redness to back of throat Physician History: [address]/mild coryza/mild cough x2 days. She denies fever/N/V/D/dysuria/hematuria/rash. Timing/Duration: days (2 days) Severity: mild ENT Location: throat Prearrival Treatment: no prearrival treatment Modifying Factors: Improves With: coughing Associated Symptoms: cough, nasal congestion/drainage, No swollen glands, No voice change Allergies/Adverse Reactions: morphine Allergy (Verified 02/21/22 15:08) Home Medications: desogestreL-ethinyl estradioL [Enskyce 28 Tablet] 1 tab PO DAILY 06/28/21 [History] Hx Tetanus, Diphtheria Vaccination/Date Given: Yes Hx Influenza Vaccination/Date Given: No Hx Pneumococcal Vaccination/Date Given: No Immunizations Up to Date: Yes Travel Risk - International Travel Have you traveled outside of the country in past 3 weeks: No - Coronavirus Screening Are you exhibiting any of the following symptoms?: No Close contact with a COVID-19 positive Pt in past 14-21 Days: No - Vaccine Status Have you recieved a Covid-19 vaccination: No - Review of Systems Constitutional: No Symptoms Eyes: No Symptoms Ears, Nose, & Throat: No Symptoms, Throat Pain Respiratory: No Symptoms Cardiac: No Symptoms Abdominal/Gastrointestinal: No Symptoms Genitourinary Symptoms: No Symptoms Musculoskeletal: No Symptoms Skin: No Symptoms Neurological: No Symptoms Psychological: No Symptoms Endocrine: No Symptoms Hematologic/Lymphatic: No Symptoms Immunological/Allergic: No Symptoms - Past Medical History Pertinent Past Medical History: Yes Neurological History: No Pertinent History ENT History: No Pertinent History Cardiac History: No Pertinent History Respiratory History: Asthma Endocrine Medical History: No Pertinent History Musculoskeletal History: Rheumatoid Arthritis GI Medical History: No Pertinent History History: No Pertinent History Psycho-Social History: No Pertinent History Female Reproductive Disorders: No Pertinent History Other Medical History: RA - Past Surgical History Past Surgical History: Yes Neuro Surgical History: No Pertinent History Cardiac: No Pertinent History Respiratory: No Pertinent History Gastrointestinal: No Pertinent History Genitourinary: No Pertinent History Musculoskeletal: No Pertinent History Female Surgical History: No Pertinent History - Social History Smoking Status: Current every day smoker How long have you smoked: 3 years Exposure to second hand smoke: Yes Drug Use: methamphetamines Patient Lives Alone: No Significant Family History: no pertinent family hx - Female History Hx Last Menstrual Period: february 13 Hx Now: No - Nursing Vital Signs Nursing Vital Signs: Initial Vital Signs Temperature 96.4 F 02/21/22 15:18 Pulse Rate 83 02/21/22 15:18 Respiratory Rate 18 02/21/22 15:18 Blood Pressure 139/82 02/21/22 15:18 O2 Sat by Pulse Oximetry 100 02/21/22 15:18 Pain Scale Pain Intensity 4 - Physical Exam General Appearance: no apparent distress Eye Exam: bilateral eye: normal inspection, PERRL, EOMI Ear Exam: bilateral ear: auricle normal, canal normal, TM normal Nasal Exam: normal inspection Throat Exam: pharynx normal (Mild pharyngeal erythema), moist mucus membranes, N o dental tenderness, No excessive drooling, No mandibular swelling, No maxillary swelling, No pharynx swelling, No pharynx tenderness, No tongue swollen, No tonsillar exudate, No tonsillar swelling, No trismus, No uvula swelling Neck Exam: normal inspection, non-tender, supple, full range of motion, trachea midline, No JVD Cardiovascular/Respiratory Exam: normal breath sounds, regular rate/rhythm, heart sounds normal Abdominal Exam: non-tender, soft Neurologic Exam: alert, oriented x 3, cooperative, first coat operator II-XII nml as tested, normal mood/affect, nml station & gait, sensation nml, No motor deficits, No sensory deficit Skin Exam: normal color, warm, dry - Course Nursing assessment & vital signs reviewed: Yes Lab/Rad Data: Laboratory Results 02/21/22 02/21/22 Range/Units Unknown 15:45 Influenza Type A Ag NEGATIVE (NEGATIVE) Influenza Type B Ag NEGATIVE (NEGATIVE) RSV (PCR) NEGATIVE (Negative) SARS-CoV-2 (PCR) NEGATIVE (NEGATIVE) Group A Strep Antibody NOT DETECTED (NEGATIVE) - Progress Counseled pt/family regarding: lab results, diagnosis, need for follow-up - Departure Departure Disposition: Home Clinical Impression: Viral URI Condition: Stable Critical Care Time: No Referrals: SHARMAINE SOARES NP [Primary Care Provider] - Follow up/PCP as directed Instructions: Sore Throat, Adult (DC), Viral Upper Respiratory Infection, Adult (DC), Viral Pharyngitis (DC) Additional Instructions: Rest/Fluids/Motrin/Tylenol Follow up with your family MD Return to ER for worsening cough, sore throat, or temperature greater than 100.5
[2022-02-21 16:05] LABS: INFLUENZA A NEGATIVE (NEGATIVE); INFLUENZA B NEGATIVE (NEGATIVE); RESPIRATORY SYNCTIAL VIRUS NEGATIVE (Negative); SARS-CoV-2 Xpert Express NEGATIVE (NEGATIVE)
[2022-02-21 16:35] VITALS: BP 117/69; PULSE 74; O2SAT 98
== END 2022-02-21 16:38 | disposition home or self-care (01) ==
LOC: ED 15:00
DX: J06.9 Acute upper respiratory infection, unspecified (principal); J02.9 Acute pharyngitis, unspecified; R09.81 Nasal congestion; R05.1 Acute cough; J45.909 Unspecified asthma, uncomplicated; Z72.0 Tobacco use
CPT/HCPCS: 0241U; 87651; 99283

== ENCOUNTER 2022-07-16 17:31 | Emergency (ER) | payer OTHER ==
[2022-07-16] MEDS ORDERED: Sodium Chloride 0.9% 1000 ML 1,000 ML IV STA ×2 (17:50→19:01)
--- NOTE | 2022-07-16 17:50 | ERPHSYRPT ---
- History of Present Illness Time Seen by Provider: 07/16/22 17:45 Source: patient Exam Limitations: no limitations Patient Subjective Stated Complaint: pt alert, arrived per wc, resp easy, skin w/d/p. 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 Approxi-1 hour prior to arrival patient took 650 mg of Tylenol orally. Patient has had no nausea vomiting or diarrhea symptoms. Patient has a history of rheumatoid arthritis and asthma. Patient denies chest pain. She feels mildly short of breath when she is coughing. She has no abdominal pain. Patient is a current daily smoker of cigarettes. Timing/Duration: day(s) (2) Cough Quality/Degree: mild, dry cough Possible Cause: occasional episodes Modifying Factors: Improves With: coughing Associated Symptoms: fever, chills, cough, muscle aches Allergies/Adverse Reactions: morphine Allergy (Verified 07/16/22 17:33) Home Medications: desogestreL-ethinyl estradioL [Enskyce 28 Tablet] 1 tab PO DAILY 06/28/21 [Histo ry] Hx Tetanus, Diphtheria Vaccination/Date Given: Yes Hx Influenza Vaccination/Date Given: No Hx Pneumococcal Vaccination/Date Given: No Immunizations Up to Date: Yes Travel Risk - International Travel Have you traveled outside of the country in past 3 weeks: No - Coronavirus Screening Are you exhibiting any of the following symptoms?: Yes Symptoms: Fever, Shortness of Breath, Headaches/Body Aches/Fatigue Close contact with a COVID-19 positive Pt in past 14-21 Days: No - Vaccine Status Have you recieved a Covid-19 vaccination: No - Review of Systems Constitutional: Fever Eyes: No Symptoms Ears, Nose, & Throat: No Symptoms Respiratory: Cough Cardiac: No Symptoms Abdominal/Gastrointestinal: No Symptoms Genitourinary Symptoms: No Symptoms Musculoskeletal: Arthralgias, Myalgias Skin: No Symptoms Neurological: No Symptoms Psychological: No Symptoms Endocrine: No Symptoms Hematologic/Lymphatic: No Symptoms Immunological/Allergic: No Symptoms All Other Systems: Reviewed and Negative - Past Medical History Pertinent Past Medical History: No Neurological History: No Pertinent History ENT History: No Pertinent History Cardiac History: No Pertinent History Respiratory History: Asthma Endocrine Medical History: No Pertinent History Musculoskeletal History: Rheumatoid Arthritis GI Medical History: No Pertinent History History: No Pertinent History Psycho-Social History: No Pertinent History Female Reproductive Disorders: No Pertinent History Other Medical History: RA - Past Surgical History Past Surgical History: Yes Neuro Surgical History: No Pertinent History Cardiac: No Pertinent History Respiratory: No Pertinent History Gastrointestinal: No Pertinent History Genitourinary: No Pertinent History Musculoskeletal: No Pertinent History Female Surgical History: No Pertinent History - Social History Smoking Status: Current every day smoker How long have you smoked: 3 years Exposure to second hand smoke: No Drug Use: none Patient Lives Alone: No Significant Family History: no pertinent family hx - Female History Hx Last Menstrual Period: may Hx Now: No - Nursing Vital Signs Nursing Vital Signs: Initial Vital Signs Temperature 102 F 07/16/22 17:34 Pulse Rate 112 H 07/16/22 17:34 Respiratory Rate 22 07/16/22 17:34 Blood Pressure 129/89 07/16/22 17:34 O2 Sat by Pulse Oximetry 100 07/16/22 17:34 Pain Scale Pain Intensity 6 - Physical Exam General Appearance: mild distress, alert, anxiety Eye Exam: PERRL/EOMI, eyes nml inspection Ears, Nose, Throat Exam: normal ENT inspection, moist mucous membranes Neck Exam: normal inspection, non-tender, supple, full range of motion Respiratory Exam: normal breath sounds, lungs clear, airway intact, No chest tenderness, No respiratory distress Cardiovascular Exam: tachycardia Gastrointestinal/Abdomen Exam: soft, normal bowel sounds, No tenderness Pelvic Exam: not done Rectal Exam: not done Back Exam: normal inspection, normal range of motion, No CVA tenderness, No vertebral tenderness Extremity Exam: normal inspection, normal range of motion, pelvis stable Neurologic Exam: alert, oriented x 3, cooperative, medical office clerk II-XII nml as tested, nml cerebellar function, nml station & gait, sensation nml, other (Crying tearful and anxious) Skin Exam: normal color, warm, dry Lymphatic Exam: No adenopathy SpO2 Interpretation: normal SpO2: 100 O2 Delivery: Room Air - Course Nursing assessment & vital signs reviewed: Yes EKG Interpreted by Me: RATE (110), Sinus Tach, NORMAL AXIS, NORMAL INTERVALS, NORMAL QRS, NORMAL ST-T, Other (No acute ischemic changes present) Ordered Tests: Active Orders 24 hr Category Date Time Status IV Insertion STAT Care 07/16/22 17:50 Active Pulse Oximetry (ED) STAT Care 07/16/22 17:50 Active CHEST 1 VIEW (PORTABLE) Stat Exams 07/16/22 19:20 Taken BLOOD CULTURE Stat Lab 07/16/22 18:22 Ordered CBC W DIFF Stat Lab 07/16/22 18:23 Completed CMP Stat Lab 07/16/22 18:23 Completed CULTURE,URINE Stat Lab 07/16/22 18:14 Received HCG,QUALITATIVE URINE Stat Lab 07/16/22 18:14 Completed Lactic Acid Stat Lab 07/16/22 18:15 Completed [place] Screen Stat Lab 07/16/22 18:23 Completed UA W/RFX CULTURE Stat Lab 07/16/22 18:14 Completed Medication Summary Generic Name Dose Route Start Last Admin Trade Name Freq PRN Reason Stop Dose Admin Sodium Chloride 1,000 mls @ 999 mls/hr 07/16/22 19:01 07/16/22 19:37 Sodium Chloride 0.9% 1000 Ml IV 07/16/22 20:01 999 mls/hr .Q1H1M STA Administration Discontinued Medications Generic Name Dose Route Start Last Admin Trade Name Freq PRN Reason Stop Dose Admin Hydrocodone Bitart/Acetaminophen 10 ml 07/16/22 18:06 07/16/22 18:10 Hydrocodone/Acetaminophen 5 Ml Udcup PO 07/16/22 18:07 10 ml STAT STA Administration Hydrocodone Bitart/Acetaminophen Confirm 07/16/22 18:09 Hydrocodone/Acetaminophen 5 Ml Udcup Administered 07/16/22 18:10 Dose 10 ml .ROUTE .STK-MED ONE Sodium Chloride 1,000 mls @ 999 mls/hr 07/16/22 17:50 07/16/22 18:11 Sodium Chloride 0.9% 1000 Ml IV 07/16/22 18:50 999 mls/hr .Q1H1M STA Administration Sodium Chloride Confirm 07/16/22 18:09 Sodium Chloride 0.9% 1000 Ml Administered 07/16/22 18:10 Dose 1,000 mls @ ud .ROUTE .STK-MED ONE Sodium Chloride Confirm 07/16/22 19:36 Sodium Chloride 0.9% 1000 Ml Administered 07/16/22 19:37 Dose 1,000 mls @ ud .ROUTE .STK-MED ONE Ketorolac Tromethamine 30 mg 07/16/22 17:52 07/16/22 18:11 Ketorolac Tromethamine 30 Mg/Ml Inj IV 07/16/22 17:53 30 mg STAT ONE Administration Ketorolac Tromethamine Confirm 07/16/22 18:08 Ketorolac Tromethamine 30 Mg/Ml Inj Administered 07/16/22 18:09 Dose 30 mg .ROUTE .STK-MED ONE Lab/Rad Data: Laboratory Result Diagrams 07/16/22 18:23 07/16/22 18:23 Laboratory Results 07/16/22 07/16/22 07/16/22 Range/Units 18:23 18:23 18:23 WBC 4.8 (4.0-10.5) x10^3/uL RBC 4.00 L (4.1-5.4) x10^6/uL Hgb 11.3 L (12.0-16.0) g/dL Hct 34.6 L (35-47) % MCV 86.5 (78-100) fL MCH 28.3 (26-32) pg MCHC 32.7 (32-36) g/dL RDW 14.8 H (11.5-14.0) % Plt Count 277 (150-450) x10^3/uL MPV 8.3 (7.5-11.0) fL Gran % 65.7 (36.0-66.0) % Immature Gran % (Auto) 0.2 (0.00-0.4) % Nucleat RBC Rel Count 0.0 (0.00-0.1) % Eos # (Auto) 0.01 (0-0.5) x10^3/uL Immature Gran # (Auto) 0.01 (0.00-0.03) x10^3u/L Absolute Lymphs (auto) 0.86 L (1.0-4.6) x10^3/uL Absolute Monos (auto) 0.73 (0.0-1.3) x10^3/uL Absolute Nucleated RBC 0.00 (0.00-0.01) x10^3u/L Lymphocytes % 18.1 L (24.0-44.0) % Monocytes % 15.4 H (0.0-12.0) % Eosinophils % 0.2 (0.00-5.0) % Basophils % 0.4 (0.0-0.4) % Absolute Granulocytes 3.12 (1.4-6.9) x10^3/uL Basophils # 0.02 (0-0.4) x10^3/uL Sodium 134 L (137-145) mmol/L Potassium 3.8 (3.5-5.1) mmol/L Chloride 104 (98-107) mmol/L Carbon Dioxide 21 L (22-30) mmol/L Anion Gap 12.7 (5-15) MEQ/L BUN 9 (7-17) mg/dL Creatinine 0.66 (0.52-1.04) mg/dL Estimated GFR > 60.0 ML/MIN Glucose 89 (74-106) mg/dL Lactic Acid (0.4-2.0) Calcium 8.8 (8.4-10.2) mg/dL Total Bilirubin 0.30 (0.2-1.3) mg/dL AST 44 H (14-36) U/L ALT 32 (0-35) U/L Alkaline Phosphatase 78 (38-126) U/L Serum Total Protein 7.3 (6.3-8.2) g/dL Albumin 4.2 (3.5-5.0) g/dL Urinalys Dipstick Clnc Urine Color (YELLOW) Urine Appearance (CLEAR) Urine pH (5-6) Ur Specific [place] (1.005-1.025) POC Urine Protein Conf (Negative) Urine Ketones (NEGATIVE) Urine Nitrite (NEGATIVE) Urine Bilirubin (NEGATIVE) Urine Urobilinogen (0-1) mg/dL Urine Leukocytes (NEGATIVE) Urine WBC (Auto) (0-5) /HPF Urine RBC (Auto) (0-2) /HPF U Epithel Cells (Auto) (FEW) /HPF Urine Bacteria (Auto) (NEGATIVE) /HPF Urine RBC (0-5) Jones/ul Urine Mucus (Auto) (NEGATIVE) /HPF Ur Culture Indicated? Urine Glucose (NEGATIVE) mg/dL Urine HCG, Qual (Negative) Monoscreen NEGATIVE (Negative) Influenza Type A Ag (NEGATIVE) Influenza Type B Ag (NEGATIVE) RSV (PCR) (Negative) SARS-CoV-2 (PCR) (NEGATIVE) Group A Strep Antibody (NEGATIVE) 07/16/22 07/16/22 07/16/22 Range/Units 18:22 18:22 18:15 WBC (4.0-10.5) x10^3/uL RBC (4.1-5.4) x10^6/uL Hgb (12.0-16.0) g/dL Hct (35-47) % MCV (78-100) fL MCH (26-32) pg MCHC (32-36) g/dL RDW (11.5-14.0) % Plt Count (150-450) x10^3/uL MPV (7.5-11.0) fL Gran % (36.0-66.0) % Immature Gran % (Auto) (0.00-0.4) % Nucleat RBC Rel Count (0.00-0.1) % Eos # (Auto) (0-0.5) x10^3/uL Immature Gran # (Auto) (0.00-0.03) x10^3u/L Absolute Lymphs (auto) (1.0-4.6) x10^3/uL Absolute Monos (auto) (0.0-1.3) x10^3/uL Absolute Nucleated RBC (0.00-0.01) x10^3u/L Lymphocytes % (24.0-44.0) % Monocytes % (0.0-12.0) % Eosinophils % (0.00-5.0) % Basophils % (0.0-0.4) % Absolute Granulocytes (1.4-6.9) x10^3/uL Basophils # (0-0.4) x10^3/uL Sodium (137-145) mmol/L Potassium (3.5-5.1) mmol/L Chloride (98-107) mmol/L Carbon Dioxide (22-30) mmol/L Anion Gap (5-15) MEQ/L BUN (7-17) mg/dL Creatinine (0.52-1.04) mg/dL Estimated GFR ML/MIN Glucose (74-106) mg/dL Lactic Acid 0.8 (0.4-2.0) Calcium (8.4-10.2) mg/dL Total Bilirubin (0.2-1.3) mg/dL AST (14-36) U/L ALT (0-35) U/L Alkaline Phosphatase (38-126) U/L Serum Total Protein (6.3-8.2) g/dL Albumin (3.5-5.0) g/dL Urinalys Dipstick Clnc Urine Color (YELLOW) Urine Appearance (CLEAR) Urine pH (5-6) Ur Specific [place] (1.005-1.025) POC Urine Protein Conf (Negative) Urine Ketones (NEGATIVE) Urine Nitrite (NEGATIVE) Urine Bilirubin (NEGATIVE) Urine Urobilinogen (0-1) mg/dL Urine Leukocytes (NEGATIVE) Urine WBC (Auto) (0-5) /HPF Urine RBC (Auto) (0-2) /HPF U Epithel Cells (Auto) (FEW) /HPF Urine Bacteria (Auto) (NEGATIVE) /HPF Urine RBC (0-5) Jones/ul Urine Mucus (Auto) (NEGATIVE) /HPF Ur Culture Indicated? Urine Glucose (NEGATIVE) mg/dL Urine HCG, Qual (Negative) Monoscreen (Negative) Influenza Type A Ag NEGATIVE (NEGATIVE) Influenza Type B Ag NEGATIVE (NEGATIVE) RSV (PCR) NEGATIVE (Negative) SARS-CoV-2 (PCR) POSITIVE A (NEGATIVE) Group A Strep Antibody NOT DETECTED (NEGATIVE) 07/16/22 07/16/22 Range/Units 18:14 18:14 WBC (4.0-10.5) x10^3/uL RBC (4.1-5.4) x10^6/uL Hgb (12.0-16.0) g/dL Hct (35-47) % MCV (78-100) fL MCH (26-32) pg MCHC (32-36) g/dL RDW (11.5-14.0) % Plt Count (150-450) x10^3/uL MPV (7.5-11.0) fL Gran % (36.0-66.0) % Immature Gran % (Auto) (0.00-0.4) % Nucleat RBC Rel Count (0.00-0.1) % Eos # (Auto) (0-0.5) x10^3/uL Immature Gran # (Auto) (0.00-0.03) x10^3u/L Absolute Lymphs (auto) (1.0-4.6) x10^3/uL Absolute Monos (auto) (0.0-1.3) x10^3/uL Absolute Nucleated RBC (0.00-0.01) x10^3u/L Lymphocytes % (24.0-44.0) % Monocytes % (0.0-12.0) % Eosinophils % (0.00-5.0) % Basophils % (0.0-0.4) % Absolute Granulocytes (1.4-6.9) x10^3/uL Basophils # (0-0.4) x10^3/uL Sodium (137-145) mmol/L Potassium (3.5-5.1) mmol/L Chloride (98-107) mmol/L Carbon Dioxide (22-30) mmol/L Anion Gap (5-15) MEQ/L BUN (7-17) mg/dL Creatinine (0.52-1.04) mg/dL Estimated GFR ML/MIN Glucose (74-106) mg/dL Lactic Acid (0.4-2.0) Calcium (8.4-10.2) mg/dL Total Bilirubin (0.2-1.3) mg/dL AST (14-36) U/L ALT (0-35) U/L Alkaline Phosphatase (38-126) U/L Serum Total Protein (6.3-8.2) g/dL Albumin (3.5-5.0) g/dL Urinalys Dipstick Clnc MAIN LAB Urine Color YELLOW (YELLOW) Urine Appearance SLIGHTLY CLOUDY (CLEAR) Urine pH 7.0 (5-6) Ur Specific [place] 1.025 (1.005-1.025) POC Urine Protein Conf 30 (Negative) Urine Ketones TRACE (NEGATIVE) Urine Nitrite NEGATIVE (NEGATIVE) Urine Bilirubin SMALL (NEGATIVE) Urine Urobilinogen 1 (0-1) mg/dL Urine Leukocytes NEGATIVE (NEGATIVE) Urine WBC (Auto) 3-5 (0-5) /HPF Urine RBC (Auto) 6-10 (0-2) /HPF U Epithel Cells (Auto) RARE (FEW) /HPF Urine Bacteria (Auto) NONE (NEGATIVE) /HPF Urine RBC TRACE-INTACT (0-5) Jones/ul Urine Mucus (Auto) SLIGHT (NEGATIVE) /HPF Ur Culture Indicated? YES Urine Glucose NEGATIVE (NEGATIVE) mg/dL Urine HCG, Qual NEGATIVE (Negative) Monoscreen (Negative) Influenza Type A Ag (NEGATIVE) Influenza Type B Ag (NEGATIVE) RSV (PCR) (Negative) SARS-CoV-2 (PCR) (NEGATIVE) Group A Strep Antibody (NEGATIVE) - Progress Progress: improved Air Movement: good Progress Note: 07/16/22 19:54 Chest x-ray does not show any acute cardiopulmonary process. Blood Culture(s) Obtained: Yes Antibiotics given: No Counseled pt/family regarding: lab results, diagnosis, need for follow-up, rad results - Departure Departure Disposition: Home Clinical Impression: COVID-19 virus infection, Mild dehydration, Fever Condition: Stable Critical Care Time: No Referrals: SHARMAINE SOARES NP [Primary Care Provider] - Follow up/PCP as directed Additional Instructions: Drink plenty of fluids. Quarantine yourself for 1 week at your home. Let family members and friends know that you are positive for COVID-19 infection. Take your medication as prescribed. May add ibuprofen 600 mg orally 3 times a day for control of fever and aches and pains. Prescriptions: Hydrocodone/Acetaminophen [Hydrocodone-Acetamn 7.5-325/15] 10 ml PO Q8H PRN PRN #120 ml MDD 30 ml PRN Reason: Cough Prednisone 10 mg [Deltasone 10 mg] 10 mg PO TID #12 tablet
[2022-07-16] MEDS ORDERED: TORAdol 30 mg Injection IV ONE (17:52)
[2022-07-16] MEDS ORDERED: HYDROCODONE-ACETAMIN 2.5-108/5 ML SOLUTION PO STA (18:06)
[2022-07-16] MEDS ORDERED: TORAdol 30 mg Injection ONE (18:08)
[2022-07-16] MEDS ORDERED: HYDROCODONE-ACETAMIN 2.5-108/5 ML SOLUTION ONE (18:09)
[2022-07-16] MEDS ORDERED: Sodium Chloride 0.9% 1000 ML 1,000 ML ONE ×2 (18:09→19:36)
[2022-07-16 18:26] LABS: Absolute Neutrophil Ct (ANC) 3.12 x10^3/uL (1.4-6.9); Basophil (Absolute #) 0.02 x10^3/uL (0-0.4); Eosinophil % 0.2 % (0.00-5.0); Eosinophil (Absolute #) 0.01 x10^3/uL (0-0.5); Hematocrit 34.6 % (35-47); Hemoglobin 11.3 g/dL (12.0-16.0); Lymphocyte (Absolute #) 0.86 x10^3/uL (1.0-4.6); Lymphocytes % 18.1 % (24.0-44.0); Mean Cell Volume 86.5 fL (78-100); Mean Corpuscular Hemoglobin 28.3 pg (26-32); Mean Corpuscular Hgb Concent. 32.7 g/dL (32-36); Mean Platelet Volume 8.3 fL (7.5-11.0); Monocyte (Absolute #) 0.73 x10^3/uL (0.0-1.3); Monocytes % 15.4 % (0.0-12.0); Neutrophil % 65.7 % (36.0-66.0); Platelet Count 277 x10^3/uL (150-450); Red Cell Distribution Width 14.8 % (11.5-14.0); White Blood Count 4.8 x10^3/uL (4.0-10.5)
[2022-07-16 18:41] LABS: ALBUMIN 4.2 g/dL (3.5-5.0); ALKALINE PHOSPHATASE 78 U/L (38-126); ANION GAP 12.7 MEQ/L (5-15); BLOOD UREA NITROGEN 9 mg/dL (7-17); CHLORIDE 104 mmol/L (98-107); Calcium 8.8 mg/dL (8.4-10.2); Carbon Dioxide 21 mmol/L (22-30); Creatinine 1 0.66 mg/dL (0.52-1.04); EST GLOMERULAR FILTRATION RATE > 60.0 ML/MIN; Glucose 89 mg/dL (74-106); Potassium 3.8 mmol/L (3.5-5.1); SGOT/AST 44 U/L (14-36); SGPT/ALT 32 U/L (0-35); SODIUM 134 mmol/L (137-145); Total Protein 7.3 g/dL (6.3-8.2)
[2022-07-16 18:43] LABS: Appearance SLIGHTLY CLOUDY (CLEAR); Bilirubin SMALL (NEGATIVE); Glucose NEGATIVE (NEGATIVE); Ketones TRACE (NEGATIVE); RBC TRACE-INTACT Ery/ul (0-5); Specific Gravity 1.025 (1.005-1.025)
[2022-07-16 18:44] LABS: Dipstick done @ ? MAIN LAB; Nitrite NEGATIVE (NEGATIVE); Protein,Urine Dip 30 (Negative); Urobilinogen 1 mg/dL (0-1)
[2022-07-16 18:49] LABS: Epithelial Cells RARE /HPF (FEW); Mucus SLIGHT /HPF (NEGATIVE); Urine Cultured Indicated? YES
[2022-07-16 19:11] LABS: INFLUENZA A NEGATIVE (NEGATIVE); INFLUENZA B NEGATIVE (NEGATIVE); RESPIRATORY SYNCTIAL VIRUS NEGATIVE (Negative)
[2022-07-16 19:14] LABS: SARS-CoV-2 Xpert Express POSITIVE (NEGATIVE)
[2022-07-16 20:42] VITALS: BP 132/75
[2022-07-16 20:45] VITALS: PULSE 78; O2SAT 98
--- NOTE | 2022-07-16 21:47 | XRAY ---
Indication: Cough and fever. Comparison: None Portable chest demonstrates normal heart and lungs with incidental small right infrahilar calcified granuloma. Bony thorax intact with minimal levoscoliosis.
== END 2022-07-16 20:45 | disposition home or self-care (01) ==
LOC: ED 17:31
DX: U07.1 COVID-19 (principal); E87.6 Hypokalemia; R50.9 Fever, unspecified; R05.1 Acute cough; R51.9 Headache, unspecified; M79.10 Myalgia, unspecified site; Z72.0 Tobacco use; Z79.891 Long term (current) use of opiate analgesic; Z79.52 Long term (current) use of systemic steroids; Z28.310 Unvaccinated for COVID-19
CPT/HCPCS: 0241U; 36415; 71045; 80053; 81015; 81025; 83605; 85025; 86308; 87040; 87086; 87651; 94760; 96374; 96375; 99284; 96360; J1885; A9270-GY

== ENCOUNTER 2023-10-13 11:45 | Observation (INO) | payer OTHER ==
[2023-10-13 13:02] VITALS: BP 130/80; PULSE 115; RESP 20; TEMP 98.4; O2SAT 99
[2023-10-13 13:05] LABS: Amphetamine,Urine NEGATIVE (NEGATIVE); Barbiturate,Urine NEGATIVE (NEGATIVE); Benzodiazepine,Urine NEGATIVE (NEGATIVE); Cocaine,Urine NEGATIVE (NEGATIVE); Methadone,Urine NEGATIVE (NEGATIVE); Opiate,Urine NEGATIVE (NEGATIVE); PCP,Urine NEGATIVE (NEGATIVE); THC,Urine NEGATIVE (NEGATIVE)
== END 2023-10-13 13:30 | disposition home or self-care (01) ==
LOC: MED SURG 11:46
PROVIDERS: ADMIT Family Medicine; ATTEND Family Medicine
DX: Z34.83 Encounter for supervision of other normal pregnancy, third trimester (principal); Z3A.34 34 weeks gestation of pregnancy
CPT/HCPCS: 59025; 80307; 99213; G0378; G0379

== ENCOUNTER 2023-11-07 14:10 | Observation (INO) | payer OTHER ==
[2023-11-07 14:52] VITALS: PULSE 96; RESP 14; TEMP 98.9; O2SAT 97
[2023-11-07 14:55] VITALS: BP 124/75
[2023-11-07 15:06] LABS: Amphetamine,Urine NEGATIVE (NEGATIVE); Barbiturate,Urine NEGATIVE (NEGATIVE); Benzodiazepine,Urine NEGATIVE (NEGATIVE); Cocaine,Urine NEGATIVE (NEGATIVE); Methadone,Urine NEGATIVE (NEGATIVE); Opiate,Urine NEGATIVE (NEGATIVE); PCP,Urine NEGATIVE (NEGATIVE); THC,Urine NEGATIVE (NEGATIVE)
== END 2023-11-07 16:12 | disposition home or self-care (01) ==
LOC: OB 14:10
PROVIDERS: ADMIT Family Medicine; ATTEND Family Medicine
DX: Z34.83 Encounter for supervision of other normal pregnancy, third trimester (principal); Z3A.37 37 weeks gestation of pregnancy
CPT/HCPCS: 80307

== ENCOUNTER 2023-11-10 11:30 | Inpatient (IN) | payer OTHER ==
[2023-11-10 12:41] LABS: AMNISURE TEST RESULTS POSITIVE (NEGATIVE)
[2023-11-10] MEDS ORDERED: Zofran 4 MG/2 ML VIAL IV PRN (12:53)
[2023-11-10] MEDS ORDERED: TUCKS TP PRN (12:53)
[2023-11-10] MEDS ORDERED: Dermoplast Spray TP PRN (12:53)
[2023-11-10] MEDS ORDERED: MOTRIN 400 MG PO PRN (12:53)
[2023-11-10] MEDS ORDERED: TYLENOL EXTRA STRENGTH 500 MG PO PRN (12:53)
[2023-11-10] MEDS ORDERED: Lactated Ringers 1,000 ML IV SCH (13:00)
[2023-11-10] MEDS ORDERED: PITOCIN 30 UNITS/ LR 500 ML 30 UNITS/500 ML PLAST..BAG IV SCH (13:00)
[2023-11-10 13:47] LABS: Hematocrit 36.9 % (35-47); Hemoglobin 11.8 g/dL (12.0-16.0); Mean Cell Volume 91.3 fL (78-100); Mean Corpuscular Hemoglobin 29.2 pg (26-32); Mean Platelet Volume 9.1 fL (7.5-11.0); Platelet Count 366 x10^3/uL (150-450); Red Blood Count 4.04 x10^6/uL (4.1-5.4); Red Cell Distribution Width 14.3 % (11.5-14.0)
[2023-11-10 14:14] LABS: Lymphocytes 12 % (24-44); Monocyte 1 % (0.0-12.0); Neutrophils 87 % (36.0-66.0); Total Cells Counted 100
[2023-11-10 14:16] LABS: ANISOCYTOSIS 1+; Hypochromia 1+; Platelet Estimate NORMAL (NORMAL)
[2023-11-10 14:28] LABS: ABO TYPING A; Antibody Screen NEGATIVE (NEGATIVE); RH TYPING POSITIVE
[2023-11-10 16:40] LABS: Amphetamine,Urine NEGATIVE (NEGATIVE); Barbiturate,Urine NEGATIVE (NEGATIVE); Benzodiazepine,Urine NEGATIVE (NEGATIVE); Cocaine,Urine NEGATIVE (NEGATIVE); Methadone,Urine NEGATIVE (NEGATIVE); Opiate,Urine NEGATIVE (NEGATIVE); PCP,Urine NEGATIVE (NEGATIVE); THC,Urine NEGATIVE (NEGATIVE)
[2023-11-10] MEDS: Docusate Sodium 100 MG PO SCH (21:43)
[2023-11-11] MEDS: TYLENOL EXTRA STRENGTH 500 MG PO PRN ×4 (00:37→20:08)
[2023-11-11 00:52] VITALS: RESP 18
[2023-11-11 04:53] LABS: Absolute Neutrophil Ct (ANC) 19.87 x10^3/uL (1.4-6.9); BASOPHIL % 0.3 % (0.0-0.4); Basophil (Absolute #) 0.09 x10^3/uL (0-0.4); Eosinophil % 0.4 % (0.00-5.0); Eosinophil (Absolute #) 0.11 x10^3/uL (0-0.5); Hematocrit 30.9 % (35-47); Hemoglobin 9.8 g/dL (12.0-16.0); IMMATURE GRAN # 0.67 x10^3u/L (0.00-0.03); IMMATURE GRAN % 2.6 % (0.00-0.4); Lymphocyte (Absolute #) 3.86 x10^3/uL (1.0-4.6); Lymphocytes % 14.9 % (24.0-44.0); Mean Corpuscular Hemoglobin 29.2 pg (26-32); Mean Corpuscular Hgb Concent. 31.7 g/dL (32-36); Mean Platelet Volume 9.4 fL (7.5-11.0); Monocyte (Absolute #) 1.38 x10^3/uL (0.0-1.3); Monocytes % 5.3 % (0.0-12.0); Neutrophil % 76.5 % (36.0-66.0); Platelet Count 356 x10^3/uL (150-450); Red Blood Count 3.36 x10^6/uL (4.1-5.4); Red Cell Distribution Width 14.5 % (11.5-14.0)
[2023-11-11] MEDS: Docusate Sodium 100 MG PO SCH (11:48)
[2023-11-11] MEDS: FERREX 150 PO SCH (11:48)
[2023-11-11] MEDS ORDERED: LANSINOH 40 GM TOP PRN (13:45)
[2023-11-11 20:31] VITALS: O2SAT 96
--- NOTE | 2023-11-12 08:35 | PCM.DS ---
Discharge Summary Date of Admission: 11/10/23 13:06 Admitting Physician: CAROLINA ROMAN Consults: Consults on Case 11/10/23 18:51 Navigation ONCE Primary Care Provider: CAROLINA ROMAN Allergies Allergies morphine Allergy (Verified 07/16/22 17:33) Hospital Summary - Hospital Course Hospital Course: patient had an uncomplicated vaginal delivery, mild lochia, and doing great at this time. - Vitals & Intake/Output Vital Signs: Vital Signs Temperature 99.0 F 11/12/23 01:49 Pulse Rate 88 11/12/23 01:49 Respiratory Rate 18 11/12/23 01:49 Blood Pressure 137/88 11/12/23 01:49 O2 Sat by Pulse Oximetry 96 11/12/23 01:49 Intake & Output: Intake & Output 11/09/23 11/10/23 11/11/23 11/12/23 11:59 11:59 11:59 11:59 Intake Total 1200 Balance 1200 Weight 94.801 kg 94.801 kg - Lab Result Diagrams: 11/11/23 04:09 - Procedures and Test Procedures and Tests throughout Hospitalization: Therapy Orders & Screens 11/10/23 12:24 Smoking Cessation Education ONCE Comment: Smoking Status: Current every day smoker How long have you smoked: 6 yrs Have you smoked in the past 12 months: Yes Approximately how many cigarettes per day: 5 Do you dip or chew tobacco: No Discharge Exam General Appearance: no apparent distress Neurologic Exam: alert, oriented x 3 Respiratory Exam: normal breath sounds, lungs clear, No respiratory distress Cardiovascular Exam: regular rate/rhythm, normal heart sounds Gastrointestinal/Abdomen Exam: soft, No tenderness, No mass Extremity Exam: normal inspection, normal range of motion Skin Exam: normal color, warm, dry Final Diagnosis/Problem List - Final Discharge Diagnosis/Problem (1) Vaginal delivery Current Visit: Yes Status: Acute Code(s): O80 - ENCOUNTER FOR FULL-TERM UNCOMPLICATED DELIVERY (2) Amphetamine abuse Current Visit: Yes Status: Acute Assessment & Plan: patient tested positive for amphetamines twice in , cord sample is pending. she was negative at delivery, CPS has visited here and will f/u at home Code(s): F15.10 - OTHER STIMULANT ABUSE, UNCOMPLICATED - Discharge Disposition: Home, Self-Care Condition: Stable Prescriptions: Continue Ondansetron ODT 4 MG [Zofran Odt 4 mg] 4 mg PO Q6H PRN PRN PRN Reason: Nausea Pnv No.95/Ferrous Fum/Folic AC [ Caplet] 1 mg PO DAILY Ferrous Sulfate [Ferosul] 1 tab PO DAILY Follow up with: CAROLINA ROMAN MD [Primary Care Provider] - 6 weeks
[2023-11-12 09:11] VITALS: BP 132/77; PULSE 96; TEMP 98.5
[2023-11-12] MEDS ORDERED: Adacel Vial IM ONE (10:35)
[2023-11-12] MEDS: FERREX 150 PO SCH (11:01)
[2023-11-12] MEDS: Docusate Sodium 100 MG PO SCH (11:26)
== END 2023-11-12 13:00 | disposition home or self-care (01) | DRG 807 ==
LOC: OB 11:30 → OBSVTOIN 13:06 → OB 13:06
PROVIDERS: ADMIT Family Medicine; ATTEND Family Medicine
PROC: 10E0XZZ Delivery of Products of Conception, External Approach (ICD-10-PCS; principal; 2023-11-10)
DX: O80 Encounter for full-term uncomplicated delivery (principal); Z37.0 Single live birth; Z3A.38 38 weeks gestation of pregnancy; Z20.828 Contact with and (suspected) exposure to other viral communicable diseases; F15.10 Other stimulant abuse, uncomplicated
CPT/HCPCS: 36415; 80307; 84112; 85025; 86850; 86900; 86901; 90715; G0379; J2590; A9270-GY

== ENCOUNTER 2024-12-28 15:30 | Observation (INO) | payer OTHER ==
[2024-12-28 16:14] LABS: Appearance Cloudy (Clear); Bacteria None Seen /HPF (None Seen); Bilirubin Negative (Negative); Blood Negative (Negative); Epithelial Cells Few /HPF (None Seen); Glucose, Urine Negative (Negative); Hyaline Casts NONE SEEN /LPF (0-2); Ketones Negative (Negative); Leukocyte Esterase Small (Negative); Nitrite Negative (Negative); Ph 6.5 (4.6-8.0); Protein,Urine Dip Negative (Negative); RBC 0-2 /HPF (0-5); Urobilinogen 0.2 mg/dL (0.2)
[2024-12-28 16:35] LABS: Barbiturate,Urine NEGATIVE (NEGATIVE); Benzodiazepine,Urine NEGATIVE (NEGATIVE); Cocaine,Urine NEGATIVE (NEGATIVE); Methadone,Urine NEGATIVE (NEGATIVE); Opiate,Urine NEGATIVE (NEGATIVE); PCP,Urine NEGATIVE (NEGATIVE); THC,Urine NEGATIVE (NEGATIVE)
[2024-12-28 17:08] LABS: Absolute Neutrophil Ct (ANC) 12.59 x10^3/uL (1.56-6.13); BASOPHIL % 0.2 % (0.1-1.2); Basophil (Absolute #) 0.04 x10^3/uL (0.01-0.08); Eosinophil % 0.1 % (0.7-5.8); Eosinophil (Absolute #) 0.02 x10^3/uL (0.04-0.36); Hematocrit 30.9 % (34.1-44.9); IMMATURE GRAN % 1.2 % (0.001-0.429); Lymphocyte (Absolute #) 2.58 x10^3/uL (1.18-3.74); Lymphocytes % 15.9 % (19.3-51.7); Mean Cell Volume 87.3 fL (79.4-94.8); Mean Corpuscular Hemoglobin 28.2 pg (25.6-32.2); Mean Corpuscular Hgb Concent. 32.4 g/dL (32.2-35.5); Mean Platelet Volume 8.9 fL (9.4-12.3); Monocyte (Absolute #) 0.79 x10^3/uL (0.24-0.86); Monocytes % 4.9 % (4.7-12.5); Neutrophil % 77.7 % (34.0-71.1); Platelet Count 321 x10^3/uL (182-369); Red Blood Count 3.54 x10^6/uL (3.93-5.22); Red Cell Distribution Width 13.3 % (11.7-14.4); White Blood Count 16.2 x10^3/uL (3.98-10.04)
[2024-12-28 17:11] LABS: Amphetamine,Urine POSITIVE (NEGATIVE)
[2024-12-28 17:22] LABS: ALBUMIN 3.7 g/dL (3.5-5.0); ANION GAP 14.7 MEQ/L (5-15); BILIRUBIN,TOTAL 0.5 mg/dL (0.2-1.3); Calcium 8.5 mg/dL (8.4-10.2); Creatinine 1 0.51 mg/dL (0.52-1.04); EST GLOMERULAR FILTRATION RATE 132.8 ML/MIN; Potassium 3.7 mmol/L (3.5-5.1); Total Protein 7.2 g/dL (6.3-8.2)
[2024-12-28 18:01] VITALS: PULSE 90; RESP 20
[2024-12-28 18:01] LABS: ABO TYPING A; Antibody Screen NEGATIVE (NEGATIVE); RH TYPING POSITIVE
[2024-12-28 18:02] VITALS: BP 126/85
--- NOTE | 2024-12-28 18:43 | XRAY ---
Indication: Intrauterine . Late care. Ultrasound biophysical profile study performed. Comparison: None Single intrauterine with heart rate 140 BPM. Four-quadrant TANA is 9.5 cm, largest pocket 3.6 cm. 2 points given for breathing, movement, tone, and qualitative amniotic fluid volume. Impression: Total biophysical profile score is 8 out of 8.
[2024-12-28 18:56] LABS: CHLAMYDIA DNA NOT DETECTED (NEGATIVE); GC DNA Probe NOT DETECTED (NEGATIVE)
[2024-12-30 09:24] LABS: RPR Non Reactive (Non Reactive); Rubella Antibodies, IgG <0.90 index (Immune >0.99); Varicella Zoster IgG Non Reactive (Non Reactive)
[2024-12-30 13:16] LABS: HBsAg Screen Negative (Negative); HCV Ab Non Reactive (Non Reactive); Hep B Core Ab, IgM Negative (Negative)
[2024-12-30 19:18] LABS: HIV Screen 4th Generation wRfx Non Reactive (Non Reactive); Hep A Ab, IgM Negative (Negative)
[2024-12-31 17:09] LABS: Hgb A 97.9 % (96.4-98.8); Hgb A2 2.1 % (1.8-3.2)
== END 2024-12-28 18:06 | disposition home or self-care (01) ==
LOC: OB 15:30
PROVIDERS: ADMIT Family Medicine; ATTEND Family Medicine
DX: Z34.83 Encounter for supervision of other normal pregnancy, third trimester (principal); Z3A.37 37 weeks gestation of pregnancy
CPT/HCPCS: 36415; 76818; 80053; 80074; 80307; 81001; 83020; 85025; 86592; 86762; 86787; 86850; 86900; 86901; 87340; 87389; 87491; 87591; G0378; G0379; 86803; G0472

== ENCOUNTER 2024-12-31 18:04 | Observation (INO) | payer OTHER ==
[2024-12-31 18:52] VITALS: O2SAT 99
[2024-12-31 18:56] LABS: Appearance Clear (Clear); Bacteria Few /HPF (None Seen); Bilirubin Negative (Negative); Blood Negative (Negative); Epithelial Cells Moderate /HPF (None Seen); Glucose, Urine Negative (Negative); Ketones Negative (Negative); Leukocyte Esterase Small (Negative); Nitrite Negative (Negative); Ph 6.5 (4.6-8.0); Protein,Urine Dip 30 (Negative); RBC 0-2 /HPF (0-5); Specific Gravity 1.025 (1.005-1.030)
[2024-12-31 19:48] VITALS: BP 129/85; PULSE 89; RESP 20
== END 2024-12-31 19:29 | disposition home or self-care (01) ==
LOC: OB 18:04
PROVIDERS: ADMIT Family Medicine; ATTEND Family Medicine
DX: Z34.83 Encounter for supervision of other normal pregnancy, third trimester (principal); Z3A.36 36 weeks gestation of pregnancy
CPT/HCPCS: 81001; 87086; G0378; G0379

== ENCOUNTER 2025-01-04 09:32 | Inpatient (IN) | payer OTHER ==
[2025-01-05 00:12] LABS: Creatinine, Urine Random 74.5 mg/dl; Protein Creatinine Ratio, Ran. 0.2 mg/mg (0.0-0.15)
[2025-01-05 00:21] LABS: Amphetamine,Urine NEGATIVE (NEGATIVE); Barbiturate,Urine NEGATIVE (NEGATIVE); Benzodiazepine,Urine NEGATIVE (NEGATIVE); Cocaine,Urine NEGATIVE (NEGATIVE); Methadone,Urine NEGATIVE (NEGATIVE); Opiate,Urine NEGATIVE (NEGATIVE); PCP,Urine NEGATIVE (NEGATIVE); THC,Urine NEGATIVE (NEGATIVE)
[2025-01-05 00:27] LABS: Appearance Clear (Clear); Bacteria Rare /HPF (None Seen); Bilirubin Negative (Negative); Blood Negative (Negative); Epithelial Cells Few /HPF (None Seen); Glucose, Urine Negative (Negative); Hyaline Casts NONE SEEN /LPF (0-2); Ketones Negative (Negative); Leukocyte Esterase Trace (Negative); Nitrite Negative (Negative); Protein,Urine Dip Negative (Negative); RBC 0-2 /HPF (0-5); Specific Gravity 1.015 (1.005-1.030); Urobilinogen 0.2 mg/dL (0.2)
[2025-01-05] MEDS: TYLENOL EXTRA STRENGTH 500 MG PO PRN (01:09)
[2025-01-05] MEDS ORDERED: XYLOCAINE 1% HCL 20 ML MDV IJ PRN (08:30)
[2025-01-05] MEDS ORDERED: Lactated Ringers 1,000 ML IV ONE (08:34)
[2025-01-05 09:02] LABS: Absolute Neutrophil Ct (ANC) 13.03 x10^3/uL (1.56-6.13); BASOPHIL % 0.3 % (0.1-1.2); Basophil (Absolute #) 0.05 x10^3/uL (0.01-0.08); Eosinophil % 0.8 % (0.7-5.8); Eosinophil (Absolute #) 0.14 x10^3/uL (0.04-0.36); Hematocrit 30.7 % (34.1-44.9); IMMATURE GRAN # 0.32 x10^3u/L (0.001-0.031); IMMATURE GRAN % 1.8 % (0.001-0.429); Lymphocyte (Absolute #) 3.13 x10^3/uL (1.18-3.74); Lymphocytes % 17.7 % (19.3-51.7); Mean Cell Volume 86.2 fL (79.4-94.8); Mean Corpuscular Hemoglobin 28.1 pg (25.6-32.2); Mean Corpuscular Hgb Concent. 32.6 g/dL (32.2-35.5); Mean Platelet Volume 9.1 fL (9.4-12.3); Monocyte (Absolute #) 1.02 x10^3/uL (0.24-0.86); Monocytes % 5.8 % (4.7-12.5); Neutrophil % 73.6 % (34.0-71.1); Platelet Count 304 x10^3/uL (182-369); Red Blood Count 3.56 x10^6/uL (3.93-5.22); Red Cell Distribution Width 13.4 % (11.7-14.4); White Blood Count 17.7 x10^3/uL (3.98-10.04)
[2025-01-05 09:52] LABS: ABO TYPING A; Antibody Screen NEGATIVE (NEGATIVE); RH TYPING POSITIVE
[2025-01-05] MEDS: Lactated Ringers 1,000 ML IV SCH (11:20)
[2025-01-05] MEDS: PITOCIN 30 UNITS/ LR 500 ML 30 UNITS/500 ML PLAST..BAG IV SCH (11:21)
[2025-01-05] MEDS: FENTANYL 2 MCG-BUPIV 0.125%-NS 250 ML Epidur 250 ML EPIDURAL SCH (11:49)
[2025-01-05] MEDS: Zofran 4 MG/2 ML VIAL IV PRN (13:01)
[2025-01-05] MEDS ORDERED: Ephedrine Sulfate 50 MG/ML IV ONE (13:17)
[2025-01-05] MEDS: Ephedrine Sulfate 50 MG/ML IV PRN (13:17)
[2025-01-05] MEDS ORDERED: Lactated Ringers 500 ML IV ONE (15:35)
[2025-01-05] MEDS: MOTRIN 400 MG PO PRN (17:43)
[2025-01-05] MEDS: Dermoplast Spray TP PRN (17:44)
[2025-01-05] MEDS: LANSINOH 40 GM TOP PRN (17:44)
[2025-01-05] MEDS: TUCKS TP PRN (17:45)
[2025-01-06] MEDS: Docusate Sodium 100 MG PO SCH (00:50)
[2025-01-06 06:06] LABS: Absolute Neutrophil Ct (ANC) 14.29 x10^3/uL (1.56-6.13); BASOPHIL % 0.2 % (0.1-1.2); Basophil (Absolute #) 0.04 x10^3/uL (0.01-0.08); Eosinophil % 0.1 % (0.7-5.8); Eosinophil (Absolute #) 0.02 x10^3/uL (0.04-0.36); Hematocrit 28.1 % (34.1-44.9); IMMATURE GRAN # 0.19 x10^3u/L (0.001-0.031); Lymphocyte (Absolute #) 3.38 x10^3/uL (1.18-3.74); Lymphocytes % 17.8 % (19.3-51.7); Mean Cell Volume 87.5 fL (79.4-94.8); Mean Platelet Volume 8.9 fL (9.4-12.3); Monocyte (Absolute #) 1.11 x10^3/uL (0.24-0.86); Monocytes % 5.8 % (4.7-12.5); Neutrophil % 75.1 % (34.0-71.1); Platelet Count 279 x10^3/uL (182-369); Red Blood Count 3.21 x10^6/uL (3.93-5.22); Red Cell Distribution Width 13.7 % (11.7-14.4)
[2025-01-06] MEDS: FERREX 150 PO SCH (10:06)
[2025-01-06] MEDS: Adacel Vial IM ONE (14:50)
[2025-01-06 20:58] LABS: HBsAg Screen Negative (Negative); RPR Non Reactive (Non Reactive)
[2025-01-07 06:35] VITALS: O2SAT 97
--- NOTE | 2025-01-07 09:01 | PCM.DS ---
Discharge Summary Date of Admission: 01/05/25 09:32 Admitting Physician: CAROLINA ROMAN Consults: Consults on Case 01/05/25 08:34 Notify Anesthesia Provider PRN 01/05/25 17:51 Navigation ONCE Primary Care Provider: CAROLINA ROMAN Allergies Allergies morphine Allergy (Verified 07/16/22 17:33) Hospital Summary - Hospital Course Hospital Course: patient had uncomplicated vaginal delivery at 38+ wks EGA, arrived in active labor, augmented with AROM. +meth and sporadic care noted, GBS was neg ative. CPS consulted during hospital stay, cord blood screen pending. - Vitals & Intake/Output Vital Signs: Vital Signs Temperature 98.0 F 01/07/25 05:00 Pulse Rate 77 01/07/25 05:00 Respiratory Rate 16 01/07/25 05:00 Blood Pressure 122/67 01/07/25 05:00 O2 Sat by Pulse Oximetry 97 01/07/25 05:00 Intake & Output: Intake & Output 01/04/25 01/05/25 01/06/25 01/07/25 10:59 10:59 11:59 11:59 Intake Total 1100 Output Total Balance 1100 Weight - Lab Result Diagrams: 01/06/25 06:00 Lab Results-Last 24 Hrs: Lab Results-Last 24 Hours 01/05/25 Range/Units 08:50 RPR Non Reactive (Non Reactive) Hep Bs Antigen Negative (Negative) Micro Results-Entire Visit: Microbiology 01/05/25 13:00 Urine Culture - Final Catherized NO GROWTH - Procedures and Test Procedures and Tests throughout Hospitalization: Therapy Orders & Screens 01/05/25 13:15 Standby ROUTINE Comment: Discharge Exam General Appearance: no apparent distress Neurologic Exam: alert, oriented x 3 Respiratory Exam: normal breath sounds, lungs clear, No respiratory distress Cardiovascular Exam: regular rate/rhythm, normal heart sounds Gastrointestinal/Abdomen Exam: soft, other (fundus firm), No tenderness, No mass Extremity Exam: normal inspection, normal range of motion Skin Exam: normal color, warm, dry Final Diagnosis/Problem List - Final Discharge Diagnosis/Problem (1) Vaginal delivery Current Visit: No Status: Acute Code(s): O80 - ENCOUNTER FOR FULL-TERM UNCOMPLICATED DELIVERY (2) (infant) Current Visit: Yes Status: Acute Code(s): Z78.9 - OTHER SPECIFIED HEALTH STATUS (3) Amphetamine abuse Current Visit: No Status: Acute Code(s): F15.10 - OTHER STIMULANT ABUSE, UNCOMPLICATED - Discharge Disposition: Home, Self-Care Condition: Stable Prescriptions: Continue Pnv No.95/Ferrous Fum/Folic AC [ Caplet] 1 mg PO DAILY Follow up with: CAROLINA ROMAN MD [Primary Care Provider] -
[2025-01-07 12:46] VITALS: RESP 18
[2025-01-07 16:20] VITALS: BP 139/92; PULSE 97; TEMP 98.2
== END 2025-01-07 21:00 | disposition home or self-care (01) | DRG 807 ==
LOC: OB 09:32 → OBSVTOIN 01-05 09:32
PROVIDERS: ADMIT Family Medicine; ATTEND Family Medicine
PROC: 10E0XZZ Delivery of Products of Conception, External Approach (ICD-10-PCS; principal; 2025-01-05)
DX: O80 Encounter for full-term uncomplicated delivery (principal); Z37.0 Single live birth; Z3A.38 38 weeks gestation of pregnancy; F15.10 Other stimulant abuse, uncomplicated
CPT/HCPCS: 36415; 80307; 81001; 82570; 84156; 85025; 86592; 86850; 86900; 86901; 87086; 87340; 90715; 94799; 96372; G0378; G0379; J2405; J2590; A9270-GY